=== PATIENT | male | born 1955 | race Caucasian/White ===

== ENCOUNTER 2017-11-10 23:44 | Emergency (ER) | payer OTHER ==
[2017-11-11 01:27] LABS: BASO % 0.6 % (0.0-1.0); EOS # 0.3 10^3/uL (0.0-0.50); EOS % 4.2 % (0.0-3.0); HEMATOCRIT 36.2 % (42.0-52.0); HEMOGLOBIN 12.2 g/dl (13.5-17.5); IMMATURE GRANULOCYTE % 0.3 % (0-3.0); LYMPH # 1.4 10^3/uL (1.5-4.5); LYMPH % 20.3 % (24.0-44.0); MEAN CORPUSCULAR HEMOGLOBIN 30.7 pg (27.0-33.0); MEAN CORPUSCULAR HGB CONC 33.7 g/dl (32.0-36.5); MEAN CORPUSCULAR VOLUME 91.2 fl (80.0-96.0); MONO # 0.7 10^3/uL (0.0-0.8); MONO % 9.4 % (0.0-5.0); NEUTROPHILS # 4.6 10^3/uL (1.8-7.7); NEUTROPHILS % 65.2 % (36.0-66.0); PLATELET COUNT, AUTOMATED 133 10^3/uL (150-450); RED BLOOD COUNT 3.97 10^6/uL (4.30-6.10); WHITE BLOOD COUNT 7.1 10^3/uL (4.0-10.0)
[2017-11-11 01:46] LABS: ANION GAP 6 MEQ/L (8-16); BLOOD UREA NITROGEN 21 MG/DL (7-18); CALCIUM LEVEL 8.1 MG/DL (8.8-10.2); CARBON DIOXIDE LEVEL 30 MEQ/L (21-32); CHLORIDE LEVEL 109 MEQ/L (98-107); CK-MB VALUE MASS < 1.0 NG/ML (<3.6); CPK CREATINE PHOSPHOKINASE 68 U/L (39-308); GLOMERULAR FILTRATION RATE 50.3 (>49); GLUCOSE, FASTING 163 MG/DL (70-100); MB/CK RELATIVE INDEX 1.47 (< OR =4); POTASSIUM SERUM 3.7 MEQ/L (3.5-5.1); SODIUM LEVEL 145 MEQ/L (136-145); TROPONIN I < 0.02 NG/ML (< 0.10)
== END 2017-11-11 03:28 | disposition home or self-care (01) ==
LOC: M ED 23:44
DX: R07.89 Other chest pain (principal); Z88.0 Allergy status to penicillin; Z79.899 Other long term (current) drug therapy; Z79.82 Long term (current) use of aspirin; Z82.49 Family history of ischemic heart disease and other diseases of the circulatory system
CPT/HCPCS: 71046

== ENCOUNTER 2020-06-17 10:26 | Inpatient (IN) | payer MEDICARE, OTHER ==
[~2020-06-17] VITALS: Ht 185.4 cm; Wt 132.9 kg
[~2020-06-17 10:26] MED LIST: AMLO1TAB25 PO; ASPI-527 PO; CAND32TA PO; LIPI10TA PO; METO1TAB32 PO; OMEP40CA97 PO; PLAV1TAB2 PO; RANO500T7 PO; VALT1TAB PO
--- NOTE | 2020-06-17 11:02 | REP ---
INDICATION: CHEST PAIN. COMPARISON: Comparison chest x-ray November 11, 2017. TECHNIQUE: Portable upright AP chest radiograph. FINDINGS: EKG monitoring electrodes are seen. The lungs are symmetrically aerated and free of focal infiltrate. Heart is prominent in size unchanged. Today's views exposed at a lesser level of inspiration. Pleural angles are sharp. No bony abnormality.. IMPRESSION: No acute infiltrate. Relatively low level of inspiration. Mildly prominent heart.. <Electronically signed by Clarke Levine > 06/17/20 [id number]
[2020-06-17 11:07] LABS: BASO % 0.4 % (0.0-1.0); EOS # 0.1 10^3/uL (0.0-0.5); EOS % 1.2 % (0.0-3.0); HEMATOCRIT 41.6 % (42.0-52.0); HEMOGLOBIN 13.8 g/dl (13.5-17.5); LYMPH % 8.5 % (24.0-44.0); MEAN CORPUSCULAR HEMOGLOBIN 30.7 pg (27.0-33.0); MEAN CORPUSCULAR HGB CONC 33.2 g/dl (32.0-36.5); MEAN CORPUSCULAR VOLUME 92.4 fl (80.0-96.0); MONO # 0.8 10^3/uL (0.0-0.8); MONO % 7.2 % (2.0-8.0); NEUTROPHILS # 9.3 10^3/uL (1.5-8.5); NEUTROPHILS % 82.3 % (36.0-66.0); PLATELET COUNT, AUTOMATED 163 10^3/uL (150-450); WHITE BLOOD COUNT 11.3 10^3/uL (4.0-10.0)
[2020-06-17] MEDS ORDERED: AMLO1TAB25 PO (11:23)
[2020-06-17] MEDS ORDERED: HYDR-3910 PO (11:23)
[2020-06-17 12:40] LABS: ALBUMIN 3.8 GM/DL (3.2-5.2); BILIRUBIN,DIRECT 0.2 MG/DL (0.0-0.2); BILIRUBIN,TOTAL 0.7 MG/DL (0.2-1.0); CALCIUM LEVEL 10.1 MG/DL (8.8-10.2); CK-MB VALUE MASS 2.7 NG/ML (<3.6); CREATININE FOR GFR 1.48 MG/DL (0.70-1.30); GLOMERULAR FILTRATION RATE 50.6 (>49); MB/CK RELATIVE INDEX 3.91 (< OR =4); POTASSIUM SERUM 3.8 MEQ/L (3.5-5.1); TOTAL PROTEIN 7.2 GM/DL (6.4-8.2); TROPONIN I 0.14 NG/ML (< 0.10)
[2020-06-17 12:53] LABS: INR 1.11; PROTHROMBIN TIME 14.5 SECONDS (12.5-14.3)
[2020-06-17 13:03] LABS: THYROID STIMULATING HORMONE 2.43 uIU/ML (0.358-3.740)
[2020-06-17] MEDS ORDERED: FUROSEMIDE 100MG/10ML VIAL (J1940) IV ONE (13:10)
[2020-06-17 14:58] LABS: CK-MB VALUE MASS 2.5 NG/ML (<3.6); MB/CK RELATIVE INDEX 3.97 (< OR =4); TROPONIN I 0.15 NG/ML (< 0.10)
[2020-06-17] MEDS ORDERED: MOM 30ML SUSPENSION UDC PO PRN (16:30)
[2020-06-17] MEDS ORDERED: ACETAMINOPHEN TAB 650MG DOSE (2X325MG) PO PRN (16:30)
[2020-06-17] MEDS ORDERED: FUROSEMIDE 40MG/4ML VIAL (J1940) IV SCH (16:30)
[2020-06-17 16:38] LABS: RSV AMPLIFICATION NEGATIVE (NEGATIVE)
--- NOTE | 2020-06-17 17:12 | HPEPDOC ---
General Date of Admission 06/17/2020 Date of Service: Jun 17, 2020 Attending Physician: VANESA FULLER MD Chief Complaint The patient is a 65-year-old male admitted with a reason for visit of Chest Pain. Source: Patient Exam Limitations: No limitations Timing/Duration: Day(s) Severity: Moderate Associated Symptoms: Shortness of breath History of Present Illness 65 yo M with a history of CAD, had an AZ in 2003 s/p PCI with 1 stent, HTN, HLD, chronic angina on ranexa BID, diverticulosis, who presented to the ED reporting worsening SOB of 3 days duration since eating a delicious ham dinner on Tuesday evening. He noticed some worsening SOB, subjective weight gain, dyspnea on exertion, bilateral leg swelling without difficulty laying down, reports of chest pain, palpitations, fever, chills, cough, abdominal pain, diarrhea, nausea, emesis. In the ED he was hypoxemic to mid 80s and placed on 2L NC and was dyspneic and tachypneic. His symptoms improved tremendously after receiving 60 IV lasix x 1. Workup was notable for EKG with NSR without ST changes, troponin that was 0.14 --> 0.15, pro BNP of 2914, covid negative, CXR that was grossly unremarkable, WBC 11.3, hgb 13.8, platelets 163, Na 141, K 3.8, Cr 1. 48, LFTs wnl, TSH 2.43. 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 Castillo at [facility] and his cardiac workup is primarily done at [facility], without prior echo in the [facility] system. He is now being admitted for CHF exacerbation. Home Medications Scheduled Aspirin (Aspirin EC) 325 Mg Tab, 325 MG PO DAILY for pain, (Reported) Atorvastatin Calcium (Lipitor) 10 Mg Tab, 10 MG PO DAILY, (Reported) Candesartan/Hydrochlorothiazid (Candesartan-Hctz 32-12.5 mg Tb) 1 Tab Tab, 1 TAB PO DAILY, (Reported) Ranolazine (Ranexa) 500 Mg Sylvain, 500 MG PO BID, (Reported) Miscellaneous Medications Amlodipine Besylate (Amlodipine Besylate) 10 Mg Tablet, (Reported) Hydralazine HCl (Hydralazine HCl) 25 Mg Tablet, (Reported) Allergies Coded Allergies: Penicillins (Verified Allergy, Unknown, 3/16/21) Past Medical History Medical History CAD, AZ in 2004, s/p PCI with 1 stent HTN HLD History of GIB Diverticulosis chronic angina Surgical History colonscopy in 2016 Family History Significant Family History: Heart disease, Hypertension Social History * Smoker: Denies Alcohol: occationally Drugs: denies Recent Travel/Sick Contacts: Denies: Recent travel, Recent sick contacts Psychosocial History: No pertinent psych hx Lives at home. Non smoker. Occasional alcohol. No illicit drug use. A-FIB/CHADSVASC A-FIB History Current/History of A-Fib/PAF?: No Current PO Anticoag Therapy: No Age/Risk Factor Scoring CHADSVASC: CHADSVASC Response (Comments) Value Age Risk Factor Age 65-74 years old 1 Gender Risk Factor Male 0 Hx of CHF Yes 1 Hx of HTN Yes 1 Hx of Stroke/TIA/or VTE No 0 Hx of Diabetes No 0 Hx of Vascular Disease Yes 1 Total 4 Treatment Treatment ordered: NONE Reason Anticoagulant not given: Not indicated/[id number] Review of Systems Constitutional: Denies: Chills, Fever, Night Sweats Eyes: Denies: Pain, Vision change ENT: Denies: Head Aches, Ear Pain, Dysphagia Skin: Denies: Rash, Lesions, Breakdown Pulmonary: Reports: Dyspnea; Denies: Cough, Pleuritic Chest Pain Cardiovascular: Reports: Edema (bilateral LE edema); Denies: Chest Pain, Palpitations, Orthopnea, Paroxysmal Noc. Dyspnea, Lt Headedness Gastrointestinal: Denies: Nausea, Vomiting, Abdominal Pain, Diarrhea Genitourinary: Denies: Dysuria, Frequency, Incontinence, Retention Hematologic: Denies: Bruising, Bleeding Excessively Endocrine: Denies: Polydipsia, Polyphagia, Polyuria, Heat Intolerance, Cold Intolerance, Other Endocrine Sx Musculoskeletal: Denies: Neck Pain, Back Pain, Joint Pain, Muscle Pain, Spasms Neurological: Denies: Weakness, Numbness, Change in speech, Confusion Psych: Reports: Mood Normal; Denies: Depression, Memory Issues Physical Examination General Exam: Positive: Alert, No Acute Distress Eye Exam: Positive: PERRLA, Conjunctiva & lids normal, EOMI; Negative: Sclera icteric ENT Exam: Positive: Atraumatic, Mucous membr. moist/pink, Pharynx Normal Neck Exam: Positive: Supple, JVD (+ to tragus); Negative: +2 carotid pulse wo bruit, Lymphadenopathy Chest Exam: Positive: Clear to auscultation, Normal air movement; Negative: Rales, Rhonchi, Wheezing Heart Exam: Positive: Rate Normal, Regular Rhythm, Normal S1, Normal S2; Negative: Murmurs, Rubs Telemetry: Positive: No significant arrhythmia Abdomen Exam: Positive: Normal bowel sounds, Soft; Negative: Tenderness, Hepatospenomegaly Extremity Exam: Positive: Edema (2+ to subknees), Normal pulses; Negative: Clubbing, Cyanosis, Tenderness Skin Exam: Positive: Nl turgor and temperature; Negative: Breakdown, Lesion Neuro Exam: Positive: Normal Gait, Normal Speech, Cranial Nerves 3-12 NL, Reflexes 2+ Psych Exam: Positive: Mental status NL, Mood NL, Oriented x 3 Vital Signs Vital Signs Date Time Temp Pulse Resp B/P (MAP) Pulse Ox O2 Delivery O2 Flow Rate FiO2 06/17/20 15:00 79 140/75 (96) 93 Nasal Cannula 2.0 06/17/20 12:56 17 06/17/20 11:12 94 06/17/20 10:41 97.5 Laboratory Data Labs 24H Laboratory Tests 2 06/17/20 10:52: Immature Granulocyte % (Auto) 0.4, Neutrophils (%) (Auto) 82.3H, Lymphocytes (%) (Auto) 8.5L, Monocytes (%) (Auto) 7.2, Eosinophils (%) (Auto) 1.2, Basophils (%) (Auto) 0.4, Neutrophils # (Auto) 9.3H, Lymphocytes # (Auto) 1.0L, Monocytes # (Auto) 0.8, Eosinophils # (Auto) 0.1, Basophils # (Auto) 0.0, Nucleated Red Blood Cells % (auto) 0.0, Prothrombin Time 14.5H, Prothromb Time International Ratio 1.11, Anion Gap 8, Glomerular Filtration Rate 50.6, Calcium Level 10.1, Total Bilirubin 0.7, Direct Bilirubin 0.2, Aspartate Amino Transf (AST/SGOT) 14, Alanine Aminotransferase (ALT/SGPT) 20, Alkaline Phosphatase 110, Total Creatine Kinase 69, Creatine Kinase MB 2.7, Creatine Kinase MB Relative Index 3.91, Troponin I 0.14H, KU-Cji-S-Type Natriuretic Peptide 2914H, Total Protein 7.2, Albumin 3.8, Albumin/Globulin Ratio 1.1, Lipase 50L, Thyroid Stimulating Hormone (TSH) 2.430 06/17/20 14:09: Total Creatine Kinase 63, Creatine Kinase MB 2.5, Creatine Kinase MB Relative Index 3.97, Troponin I 0.15H 06/17/20 15:46: Coronavirus (COVID-19)(PCR) NEGATIVE, Influenza Type A (RT-PCR) NEGATIVE, Influenza Type B (RT-PCR) NEGATIVE, Respiratory Syncytial Virus (PCR) NEGATIVE CBC/BMP Laboratory Tests 06/17/20 10:52 Assessment/Plan 65 yo M with a history of CAD, had an AZ in 2003 s/p PCI with 1 stent, HTN, HLD, chronic angina on ranexa BID, diverticulosis, who presented to the ED reporting worsening SOB of 3 days duration with worsening SOB, subjective weight gain, dyspnea on exertion, bilateral leg swelling and found to be in toñito CHF. CHF exacerbation, unclear subtype: -Although chronic of CHF diagnosis is currently unclear, I imagine it may not be a new diagnosis given cardiac history, though he is not a loop diuretic at recent baseline -continue lasix 60gm IV Q6H -strict I/Os -daily weights -2g sodium diet -hold ARB/HCTZ for HTN -hold CCB -hold hydral for HTN -continue lipitor -continue ASA JUAN: likely congestive i/s/o acute CHF -diuresis as noted above -monitor daily BMP -holding ARB Acute hypoxemia: 2/2 CHF -diuresis as above -procalcitonin -CXR without evidence of pneumonia -covid-19 negative CAD: -continue ranolazine 500 BID, ASA 325 daily, lipitor 20 D Type 2 NSTEMI: i/s/o acute CHF exacerbation -trend troponin -monitor on telemetry -continue home ranolazine -PRN SLN HTN: -while on aggressive loop diuresis, will hold ARB, CCB, HCTZ and hydral and will restart as indicated HLD: -continue lipitor DVT ppx: heparin BID Plan / VTE VTE Prophylaxis Ordered?: Yes VANESA FULLER MD Jun 17, 2020 16:59
[2020-06-17] MEDS ORDERED: MULT-40 PO (17:24)
[2020-06-17] MEDS ORDERED: ATOR1TAB21 PO (17:24)
[2020-06-17 18:00] VITALS: BP 165/93
--- NOTE | 2020-06-17 19:39 | ECGEPIP ---
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
--- NOTE | 2020-06-17 19:53 | ECGEPIP ---
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
[2020-06-17] MEDS: HEPARIN SOD (PORCINE) 5000UNITS/ML 1ML VIAL/SYRINGE SC SCH (20:31)
[2020-06-17] MEDS: RANOLAZINE 500 MG ER TAB PO SCH (20:31)
[2020-06-17 22:00] VITALS: BP 139/76
[2020-06-18] MEDS: FUROSEMIDE 100MG/10ML VIAL (J1940) IV SCH ×3 (00:04→16:30)
[2020-06-18 01:59] LABS: CALCIUM LEVEL 10.1 MG/DL (8.8-10.2); CK-MB VALUE MASS 1.3 NG/ML (<3.6); CREATININE FOR GFR 1.54 MG/DL (0.70-1.30); GLOMERULAR FILTRATION RATE 48.4 (>49); MAGNESIUM LEVEL 2.4 MG/DL (1.8-2.4); MB/CK RELATIVE INDEX 1.83 (< OR =4); PHOSPHORUS LEVEL 3.6 MG/DL (2.5-4.9); POTASSIUM SERUM 3.5 MEQ/L (3.5-5.1); TROPONIN I 0.12 NG/ML (< 0.10)
[2020-06-18 05:59] LABS: HEMATOCRIT 41.1 % (42.0-52.0); HEMOGLOBIN 13.5 g/dl (13.5-17.5); MEAN CORPUSCULAR HEMOGLOBIN 30.5 pg (27.0-33.0); MEAN CORPUSCULAR HGB CONC 32.8 g/dl (32.0-36.5); PLATELET COUNT, AUTOMATED 156 10^3/uL (150-450); RED BLOOD COUNT 4.42 10^6/uL (4.30-6.10); WHITE BLOOD COUNT 10.4 10^3/uL (4.0-10.0)
[2020-06-18 06:00] VITALS: BP 135/76
[2020-06-18 06:20] LABS: CALCIUM LEVEL 9.3 MG/DL (8.8-10.2); CREATININE FOR GFR 1.37 MG/DL (0.70-1.30); GLOMERULAR FILTRATION RATE 55.3 (>49); MAGNESIUM LEVEL 2.3 MG/DL (1.8-2.4); POTASSIUM SERUM 3.5 MEQ/L (3.5-5.1)
--- NOTE | 2020-06-18 08:59 | IPNPDOC ---
Text Note Date of Service The patient was seen on 06/18/20. NOTE Physical Examination General Exam: Positive: Alert, No Acute Distress Eye Exam: Positive: PERRLA, Conjunctiva & lids normal, EOMI; Negative: Sclera icteric ENT Exam: Positive: Atraumatic, Mucous membr. moist/pink, Pharynx Normal Neck Exam: Positive: Supple, JVD (+ to tragus); Negative: +2 carotid pulse wo bruit, Lymphadenopathy Chest Exam: Positive: Clear to auscultation, Normal air movement; Negative: Rales, Rhonchi, Wheezing Heart Exam: Positive: Rate Normal, Regular Rhythm, Normal S1, Normal S2; Negative: Murmurs, Rubs Telemetry: Positive: No significant arrhythmia SUBJECTIVE: -No acute events overnight -Feels well this morning -However was noted to be hypoxemic overnight requiring up to 5L while sleeping, on 3L this morning OBJECTIVE: General: Morbidly obese, NAD, nasal canula in place HEENT: NCAT, EOMI, PERRLA, MMM Neck: no noted JVD anymore Pulm: CTAB, no wheezing, rales or rhonchi Cardiac: RRR, no m/r/g Abd: Protuberant, normal bowel sounds, soft, NTND Extremities: Edema is dramatically improved, no significant bilateral edema, trace at most now, WWP. Skin: Nummular psoriatic patch on his central back and elbows, no other noted rashes or areas of erythema or lesions Neuro: Normal Speech, Cranial Nerves 3-12 NL, moving all extremities spontaneously Psych: Mental status NL, Mood NL, Oriented x 3 Laboratory Data: WBC 10.4 Hgb 13.5 platelets 156 na 143 K 3.5 BUN 21 Cr 1.37 Assessment: 65 yo M with a history of CAD, had an [place] in 2003 s/p PCI with 1 stent, HTN, HLD, chronic angina on ranexa BID, diverticulosis, who presented to the ED reporting worsening SOB of 3 days duration with worsening SOB, subjective weight gain, dyspnea on exertion, bilateral leg swelling and found to be in toñito CHF. CHF exacerbation, unclear subtype: -Although chronicity of CHF diagnosis is currently unclear, I imagine it may not be a new diagnosis given cardiac history, though he is not a loop diuretic at recent baseline -Switch IV lasix to 60mg PO daily -strict I/Os -daily weights -2g sodium diet -2L/24h fluid restriction -hold ARB/HCTZ -hold CCB -hold hydral for HTN -continue lipitor -continue ASA CKD: stable, at baseline -diuresis as noted above -monitor daily BMP -holding ARB currently Acute hypoxemia: 2/2 CHF but also likely has undiagnosed LAUREANO given nocturnal worsening of hypoxemia -diuresis as above -procalcitonin was wnl -CXR without evidence of pneumonia -covid-19 negative -supplemental O2 to goal >92% -incentive spirometry -will need pulm referral at discharge for sleep study CAD: -continue ranolazine 500 BID, ASA 325 daily, lipitor 20 QD Type 2 NSTEMI: i/s/o acute CHF exacerbation -troponin downtrended -monitor on telemetry -continue home ranolazine HTN: -while on aggressive loop diuresis, will hold ARB, CCB, HCTZ and hydral and will restart as indicated HLD: -continue lipitor DVT ppx: heparin BID VS,Fishbone, I+O VS, Fishbone, I+O Laboratory Tests 06/17/20 10:52 06/18/20 01:21 06/18/20 05:39 Vital Signs Date Time Temp Pulse Resp B/P (MAP) Pulse Ox O2 Delivery O2 Flow Rate FiO2 06/18/20 06:00 98.4 92 18 135/76 (95) 94 Nasal Cannula 5.0 06/17/20 11:12 94 I&O- Last 24 Hours up to 6 AM 06/18/20 06:00 Intake Total 510 ml Output Total 2225 ml Balance -1715 ml VANESA FULLER MD Jun 18, 2020 08:59
[2020-06-18] MEDS: ASPIRIN 325 MG TAB PO SCH (09:44)
[2020-06-18] MEDS: RANOLAZINE 500 MG ER TAB PO SCH ×2 (09:44→20:53)
[2020-06-18] MEDS: ATORVASTATIN 20 MG TAB PO SCH (09:44)
[2020-06-18] MEDS: HEPARIN SOD (PORCINE) 5000UNITS/ML 1ML VIAL/SYRINGE SC SCH ×2 (09:45→20:54)
[2020-06-18 14:00] VITALS: BP 130/81
--- NOTE | 2020-06-18 17:51 | REPVR ---
PROCEDURE INFORMATION: Exam: CT Chest Without Contrast; Diagnostic Exam date and time: 06/18/2020 5:27 PM Age: 65 years old Clinical indication: Other: Hypoxiemia TECHNIQUE: Imaging protocol: Diagnostic computed tomography of the chest without contrast. 3D rendering (Not supervised by radiologist): MIP and/or 3D reconstructed images were created by the technologist. Radiation optimization: All CT scans at this facility use at least one of these dose optimization techniques: automated exposure control; mA and/or kV adjustment per patient size (includes targeted exams where dose is matched to clinical indication); or iterative reconstruction. COMPARISON: [facility] PORTABLE CHEST X-RAY 06/17/2020 10:51 AM FINDINGS: Lungs: Scattered areas of infiltrate having somewhat of a ground-glass appearance are noted within the lungs. This is slightly more patchy and consolidative involving the superior segment of the left lower lobe. Pleural spaces: Unremarkable. No pneumothorax. No pleural effusion. Heart: Unremarkable. No cardiomegaly. No pericardial effusion. Mediastinal space: There is a small hiatal hernia. Aorta: Unremarkable. No aortic aneurysm. Lymph nodes: Unremarkable. No enlarged lymph nodes. Kidneys and ureters: There is a mass noted involving the right kidney measuring at least 87 x 97 mm incompletely visualized. This is indeterminate and could be a complicated hemorrhagic cyst. Consider contrast enhanced nonemergent CT scan for further evaluation if clinically indicated. Bones/joints: Unremarkable. No acute fracture. Soft tissues: Unremarkable. IMPRESSION: 1. Subtle areas of ground-glass haziness noted involving both lungs with an area of more consolidation noted involving the superior segment of the left lower lobe. 2. Imaging features can be seen with COVID-19 pneumonia, though are nonspecific and can occur with a variety of infectious and noninfectious processes. (Reference: Mo) 3. Large lesion noted incompletely seen involving the right kidney without fluid density. Questionable hemorrhagic cyst versus mass. COMMENTS: Consistent with the [employer]'s Incidental Findings Committee white paper (J Am Teena Radiol 2018): Any incidental renal lesion less than 1 cm or classified as too small to characterize, or any incidental cystic renal lesion characterized as simple-appearing, is likely benign. No follow-up imaging is recommended for these lesions per consensus recommendations based on imaging criteria. REFERENCES: Mo Juan et al., Radiological Society of [place] Expert Consensus Statement on Reporting Chest CT Findings Related to COVID-19. Endorsed by the Society of Thoracic Radiology, the [employer], and RSNA. Published June 27, 2019. Electronically signed by: Mark Peterson On 06/18/2020 17:50:59 PM
[2020-06-18 22:00] VITALS: BP 131/83
[2020-06-18] MEDS ORDERED: ISOVUE-370 76% 100ML VIAL As Ordered ONE (22:25)
--- NOTE | 2020-06-18 23:28 | REPVR ---
PROCEDURE INFORMATION: Exam: CT Angiography Chest With Contrast Exam date and time: 06/18/2020 10:53 PM Age: 65 years old Clinical indication: Abnormal findings; Other: Elevated d dimer; Additional info: R/O pe with hypoxemia and hiigh ddimer TECHNIQUE: Imaging protocol: Computed tomographic angiography of the chest with contrast. 3D rendering (Not supervised by radiologist): MIP and/or 3D reconstructed images were created by the technologist. Radiation optimization: All CT scans at this facility use at least one of these dose optimization techniques: automated exposure control; mA and/or kV adjustment per patient size (includes targeted exams where dose is matched to clinical indication); or iterative reconstruction. Contrast material: ISOVUE 370; Contrast volume: 75 ml; Contrast route: INTRAVENOUS (IV); COMPARISON: CT Chest without contrast 06/18/2020 5:23 PM FINDINGS: Pulmonary arteries: The main pulmonary artery measures 36 mm. Moderate bilateral pulmonary embolism involving all lobes and greatest in the right lower lobe. Aorta: The ascending thoracic aorta measures 34 mm. Lungs: Mild scattered ground-glass infiltrates, greatest in the left lower lobe with minimal scattered fibro-atelectatic change. Pleural spaces: Unremarkable. No pneumothorax. No pleural effusion. Heart: RV diameter is 6.2 cm, LV diameter is 3.6 cm. RV/LV ratio is 1.7. Lymph nodes: There are some upper normal celiac nodes anterior to the IVC. Kidneys and ureters: Incomplete visualization of a solid heterogeneously enhancing mass of the anterior right kidney measuring approximately the 11.4 x 9.2 cm in diameter consistent with a renal malignancy. There is incomplete visualization of a anterior left renal cyst measuring 2.0 cm with a Hounsfield measurement of 1. Bones/joints: Unremarkable. No acute fracture. Soft tissues: Unremarkable. IMPRESSION: 1. Moderate bilateral pulmonary embolism involving all lobes. 2. Mild scattered ground-glass infiltrates, greatest in the left lower lobe with minimal scattered fibro-atelectatic change which appears slightly increased overall since 06/18/2020. 3. Elevated RV/LV ratio of 1.7. 4. Incomplete visualization of an enhancing right renal mass consistent with malignancy measuring at least 11.4 x 9.2 cm in diameter. Suggest urologic consult. COMMENTS: Consistent with the [employer]'s Incidental Findings Committee white paper (J Am Teena Radiol 2018): Any incidental renal lesion less than 1 cm or classified as too small to characterize, or any incidental cystic renal lesion characterized as simple-appearing, is likely benign. No follow-up imaging is recommended for these lesions per consensus recommendations based on imaging criteria. Electronically signed by: Eamon Goodman On 06/18/2020 23:28:40 PM
[2020-06-18] MEDS ORDERED: HEPARIN DRIP 25,000 UNITS in IV 1 EA IV SCH (23:39)
[2020-06-18] MEDS ORDERED: HEPARIN SOD (PORCINE) 5000UNITS/ML 1ML VIAL/SYRINGE IV PRN (23:40)
[2020-06-18] MEDS ORDERED: HEPARIN SOD (PORCINE) 5000UNITS/ML 1ML VIAL/SYRINGE IV ONE (23:40)
[2020-06-19 06:00] VITALS: BP_SYST 128; BP_SYST 147; BP_DIAS 79; BP_DIAS 89
[2020-06-19 06:05] LABS: HEMATOCRIT 40.6 % (42.0-52.0); MEAN CORPUSCULAR HEMOGLOBIN 29.8 pg (27.0-33.0); MEAN CORPUSCULAR VOLUME 93.1 fl (80.0-96.0); PLATELET COUNT, AUTOMATED 154 10^3/uL (150-450); RED BLOOD COUNT 4.36 10^6/uL (4.30-6.10); WHITE BLOOD COUNT 9.6 10^3/uL (4.0-10.0)
[2020-06-19 07:14] LABS: PARTIAL THROMBOPLASTIN TIME 104.6 SECONDS (24.2-38.5)
[2020-06-19 07:23] LABS: C REACTIVE PROTEIN QUANTITATIV 6.03 MG/DL (0.00-0.30); CALCIUM LEVEL 9.1 MG/DL (8.8-10.2); CREATININE FOR GFR 1.4 MG/DL (0.70-1.30); MAGNESIUM LEVEL 2.5 MG/DL (1.8-2.4); POTASSIUM SERUM 3.6 MEQ/L (3.5-5.1)
[2020-06-19] MEDS: ATORVASTATIN 20 MG TAB PO SCH (08:35)
[2020-06-19] MEDS: ASPIRIN 325 MG TAB PO SCH (08:35)
[2020-06-19] MEDS: RANOLAZINE 500 MG ER TAB PO SCH ×2 (08:35→20:16)
--- NOTE | 2020-06-19 09:36 | IPNPDOC ---
Text Note Date of Service The patient was seen on 06/19/20. NOTE Synopsis: 65 yo morbidly obese M with significant CAD and chronic angina, who reports a prior history of chewing tobacco but no smoking history or diagnosis of COPD or asthma who presented with a few days of dyspnea with exertion without fever, chills, cough or any URI symptoms but noted bilateral LE edema. In the ED he was notably volume overloaded and required 2-3L NC. His dyspnea improved after diuretics with resolution of edema and JVD but hypoxemia persisted and actually got worse. noncon chest CT showed multifocal GGOs and respiratory panel was negative for covid-19 while procalcitonin was negative making bacterial PNA unlikely. A d-dimer was checked and >4000 after which a CTA chest was done that showed a moderate bilateral pulmonary embolism involving all lobes, mild scattered GGOs, elevated RV/LV ratio of 1.7 and incidental incomplete visualization of an enhancing right renal mass consistent with malignancy measuring at least 11.4 x 9.2 cm in diameter. He was therefore started on a heparin gtt overnight. Subjective: -No acute events overnight, remains on 3L this morning -No chest pain, palpitations, orthopnea or hematuria. OBJECTIVE: General: Morbidly obese, NAD, nasal canula in place HEENT: NCAT, EOMI, PERRLA, MMM Neck: no noted JVD anymore Pulm: CTAB, no wheezing, rales or rhonchi Cardiac: RRR, no m/r/g Abd: Protuberant, normal bowel sounds, soft, NTND Extremities: No LE edema, WWP. Skin: Nummular psoriatic patch on his central back and elbows, no other noted rashes or areas of erythema or lesions Neuro: Normal Speech, Cranial Nerves 3-12 NL, moving all extremities spontaneously Psych: Mental status NL, Mood NL, Oriented x 3 Laboratory Data: WBC 9.6 Hgb 13 platelets 154 na 141 K 3.6 Cr 1.4 CTA chest: FINDINGS: Pulmonary arteries: The main pulmonary artery measures 36 mm. Moderate bilateral pulmonary embolism involving all lobes and greatest in the right lower lobe. Aorta: The ascending thoracic aorta measures 34 mm. Lungs: Mild scattered ground-glass infiltrates, greatest in the left lower lobe with minimal scattered fibro-atelectatic change. Pleural spaces: Unremarkable. No pneumothorax. No pleural effusion. Heart: RV diameter is 6.2 cm, LV diameter is 3.6 cm. RV/LV ratio is 1.7. Lymph nodes: There are some upper normal celiac nodes anterior to the IVC. Kidneys and ureters: Incomplete visualization of a solid heterogeneously enhancing mass of the anterior right kidney measuring approximately the 11.4 x 9.2 cm in diameter consistent with a renal malignancy. There is incomplete visualization of a anterior left renal cyst measuring 2.0 cm with a Hounsfield measurement of 1. Bones/joints: Unremarkable. No acute fracture. Soft tissues: Unremarkable. IMPRESSION: 1. Moderate bilateral pulmonary embolism involving all lobes. 2. Mild scattered ground-glass infiltrates, greatest in the left lower lobe with minimal scattered fibro-atelectatic change which appears slightly increased overall since 06/18/2020. 3. Elevated RV/LV ratio of 1.7. 4. Incomplete visualization of an enhancing right renal mass consistent with malignancy measuring at least 11.4 x 9.2 cm in diameter. Suggest urologic consult. noncon CT chest: Lungs: Scattered areas of infiltrate having somewhat of a ground-glass appearance are noted within the lungs. This is slightly more patchy and consolidative involving the superior segment of the left lower lobe. Pleural spaces: Unremarkable. No pneumothorax. No pleural effusion. Heart: Unremarkable. No cardiomegaly. No pericardial effusion. Mediastinal space: There is a small hiatal hernia. Aorta: Unremarkable. No aortic aneurysm. Lymph nodes: Unremarkable. No enlarged lymph nodes. Kidneys and ureters: There is a mass noted involving the right kidney measuring at least 87 x 97 mm incompletely visualized. This is indeterminate and could be a complicated hemorrhagic cyst. Consider contrast enhanced nonemergent CT scan for further evaluation if clinically indicated. Bones/joints: Unremarkable. No acute fracture. Soft tissues: Unremarkable. IMPRESSION: 1. Subtle areas of ground-glass haziness noted involving both lungs with an area of more consolidation noted involving the superior segment of the left lower lobe. 2. Imaging features can be seen with COVID-19 pneumonia, though are nonspecific and can occur with a variety of infectious and noninfectious processes. (Reference: Hassan) 3. Large lesion noted incompletely seen involving the right kidney without fluid density. Questionable hemorrhagic cyst versus mass. Admission CXR: EKG monitoring electrodes are seen. The lungs are symmetrically aerated and free of focal infiltrate. Heart is prominent in size unchanged. Today's views exposed at a lesser level of inspiration. Pleural angles are sharp. No bony abnormality.. IMPRESSION: No acute infiltrate. Relatively low level of inspiration. Mildly prominent heart.. TTE: official read pending --> per my discussion with Dr. Vaughn, he has RV strain, dilated IVC, significant pulm pressures showing that he may have been having thromboses for longer than a few days, grade 1 diastolic dysfunction with an otherwise normal EF. Assessment: 65 yo morbidly obese M with significant CAD and chronic angina, who reports a prior history of chewing tobacco but no smoking history or diagnosis of COPD or asthma who presented with a few days of dyspnea with exertion without fever, chills, cough or any URI symptoms but noted bilateral LE edema. In the ED he was notably volume overloaded and required 2-3L NC. His dyspnea improved after diuretics with resolution of edema and JVD but hypoxemia persisted and actually got worse. noncon chest CT showed multifocal GGOs and respiratory panel was negative for covid-19 while procalcitonin was negative making bacterial PNA unlikely. A d-dimer was checked and >4000 after which a CTA chest was done that showed a moderate bilateral pulmonary embolism involving all lobes, mild scatter ed GGOs, elevated RV/LV ratio of 1.7 and incidental incomplete visualization of an enhancing right renal mass consistent with malignancy measuring at least 11.4 x 9.2 cm in diameter. He was therefore started on a heparin gtt overnight. Acute bilateral PEs: likely 2/2 malignancy given incidentally found R renal mass -CTA chest was done that showed a moderate bilateral pulmonary embolism involving all lobes, mild scattered GGOs, elevated RV/LV ratio of 1.7 and incidental incomplete visualization of an enhancing right renal mass consistent with malignancy measuring at least 11.4 x 9.2 cm in diameter -continue heparin gtt -Although he has RV strain, is hemodynamically stable, no vascular surgery coverage available -will discuss anticoagulation plan with hematology given RV strain, submassive PEs and will also FYI about renal mass that is likely malignancy and will need to be established with onc and urology. Acute HFpEF: -Although chronicity of CHF diagnosis is currently unclear, I imagine it may not be a new diagnosis given cardiac history, though he is not a loop diuretic at recent baseline -s/p IV lasix -TTE official read pending --> per my discussion with Dr. Vaughn, he has RV strain, dilated IVC, significant pulm pressures showing that he may have been having thromboses for longer than a few days, grade 1 diastolic dysfunction with an otherwise normal EF. -strict I/Os -daily weights -2g sodium diet -2L/24h fluid restriction -hold ARB/HCTZ -hold CCB -hold hydral for HTN -continue lipitor -continue ASA R renal mass: -incidentally found on CTA chest --> MRI abdomen is ordered. Otherwise will get CT A/P w/wo IV contrast if MRI cannot be completed due to heart stent -urology consult--> spoke with Dr. Mcgarry who recommended following up with him as an outpatient. -daily BMP, Cr is at his recent baseline CKD: stable, at baseline -s/p loop diuresis -monitor daily BMP -holding ARB currently, BP well controlled Acute hypoxemic respiratory failure: 2/2 bilateral PEs and acute HFpEF but also likely has undiagnosed LAUREANO given morbid obesity -s/p diuresis -procalcitonin was wnl -CT showed GGOs, procalcitonin was negative making likelihood for bacterial PNA unlikely -covid-19 negative -supplemental O2 to goal >92% -incentive spirometry -heparin gtt for acute PEs -will need pulm referral at discharge for sleep study CAD: -continue ranolazine 500 BID, ASA 325 daily, lipitor 20 QD Type 2 NSTEMI: i/s/o acute bilateral PEs with RV strain and acute HFpEF -troponin downtrended -monitor on telemetry -continue home ranolazine -no chest pain at present HTN: normotensive -hold ARB, CCB, HCTZ and hydral and will restart as indicated HLD: -continue lipitor DVT ppx: heparin gtt VS,Fishbone, I+O VS, Fishbone, I+O Laboratory Tests 06/19/20 05:43 Vital Signs Date Time Temp Pulse Resp B/P (MAP) Pulse Ox O2 Delivery O2 Flow Rate FiO2 06/19/20 06:00 98.8 80 18 128/79 (95) 96 Nasal Cannula 4.0 06/17/20 11:12 94 I&O- Last 24 Hours up to 6 AM 06/19/20 06:00 Intake Total 1883 ml Output Total 1125 ml Balance 758 ml VANESA FULLER MD Jun 19, 2020 09:36
[2020-06-19 14:00] VITALS: BP 113/66
[2020-06-19 15:54] LABS: CREATININE FOR GFR 1.33 MG/DL (0.70-1.30); GLOMERULAR FILTRATION RATE 57.3 (>49)
[2020-06-19] MEDS: ENOXAPARIN 150MG/ML SYRINGE (J1650 PER 10MG) SC SCH (18:13)
[2020-06-19 22:00] VITALS: BP 120/66
[2020-06-20] MEDS: ENOXAPARIN 150MG/ML SYRINGE (J1650 PER 10MG) SC SCH (05:41)
[2020-06-20 06:07] LABS: HEMOGLOBIN 13.1 g/dl (13.5-17.5); MEAN CORPUSCULAR HEMOGLOBIN 30.1 pg (27.0-33.0); MEAN CORPUSCULAR VOLUME 94.3 fl (80.0-96.0); PLATELET COUNT, AUTOMATED 161 10^3/uL (150-450); RED BLOOD COUNT 4.35 10^6/uL (4.30-6.10); WHITE BLOOD COUNT 8.2 10^3/uL (4.0-10.0)
[2020-06-20 06:35] LABS: CREATININE FOR GFR 1.36 MG/DL (0.70-1.30); GLOMERULAR FILTRATION RATE 55.8 (>49); MAGNESIUM LEVEL 2.6 MG/DL (1.8-2.4); POTASSIUM SERUM 3.7 MEQ/L (3.5-5.1)
[2020-06-20] MEDS: ASPIRIN 325 MG TAB PO SCH (09:24)
[2020-06-20] MEDS: ATORVASTATIN 20 MG TAB PO SCH (09:24)
[2020-06-20] MEDS: RANOLAZINE 500 MG ER TAB PO SCH (09:24)
[2020-06-20] MEDS ORDERED: LOVE0.8I3 SC (09:59)
[2020-06-20] MEDS ORDERED: PROHANCE 279.3MG/ML 15ML VIAL As Ordered ONE (12:13)
--- NOTE | 2020-06-20 13:09 | DS.PDOC ---
Discharge Summary General Date of Admission Jun 17, 2020 at 16:30 Date of Discharge 06/20/2020 Attending Physician: VANESA UFLLER MD Discharge Summary PROCEDURES PERFORMED DURING STAY: None ADMITTING DIAGNOSES: Acute CHF Acute hypoxemic respiratory failure CKD Morbid obesity HTN HLD CAD Chronic angina DISCHARGE DIAGNOSES: Acute HFpEF Acute bilateral submassive PEs Acute hypoxemic respiratory failure Newly found L renal mass c/f malignancy CKD Morbid obesity HTN HLD CAD Chronic angina COMPLICATIONS/CHIEF COMPLAINT: CHF. HISTORY OF PRESENT ILLNESS: 65 yo M with a history of CAD, had an ID in 2003 s/p PCI with 1 stent, HTN, HLD, chronic angina on ranexa BID, diverticulosis, who presented to the ED reporting worsening SOB of 3 days duration since eating a delicious ham dinner on Tuesday evening. He noticed some worsening SOB, subjective weight gain, dyspnea on e xertion, bilateral leg swelling without difficulty laying down, reports of chest pain, palpitations, fever, chills, cough, abdominal pain, diarrhea, nausea, emesis. HOSPITAL COURSE In the ED he was hypoxemic to mid 80s and placed on 2L NC and was dyspneic and tachypneic. His symptoms improved tremendously after receiving 60 IV lasix x 1. Workup was notable for EKG with NSR without ST changes, troponin that was 0.14 --> 0.15, pro BNP of 2914, covid negative, CXR that was grossly unremarkable, WB C 11.3, hgb 13.8, platelets 163, Na 141, K 3.8, Cr 1. 48, LFTs wnl, TSH 2.43. His chalk tester is Dr. Castillo at [place] and his cardiac workup is primarily done at [place], without prior echo in the [facility] system. In the ED he was notably volume overloaded and required 2-3L NC. His dyspnea improved after diuretics with resolution of edema and JVD but hypoxemia persisted and actually got worse. Noncon chest CT showed multifocal GGOs and respiratory panel was negative for covid-19 while procalcitonin was negative making bacterial PNA unlikely. A d- dimer was checked and was >4000 after which a CTA chest was done that showed a moderate bilateral pulmonary embolism involving all lobes, mild scattered GGOs, elevated RV/LV ratio of 1.7 and incidental incomplete visualization of an enhancing right renal mass consistent with malignancy measuring at least 11.4 x 9.2 cm in diameter. He was therefore started on a heparin gtt overnight and eventually transitioned to BID lovenox for submassive PEs. Dr. Mcgarry (urology) was called and recommended outpatient follow up with him shortly after discharge for planning and to obtain definitive abdominal imaging with CT A?P w/wo IV contrast. Given recent contrast and history of CKD and MRI being appropriate, I ordered an MRI of his abdomen that was done prior to discharge for Dr. Mcgarry's evaluation when he sees him in the outpatient setting shortly . He is now being discharged on lovenox, also on supplemental oxygen as he continued to be hypoxemic from the recent PEs with the expectation that will require supplemental oxygen for at least the next week up to I predict at most 1 month. DISCHARGE MEDICATIONS: Please see below. ALLERGIES: Please see below. PHYSICAL EXAMINATION ON DISCHARGE: OBJECTIVE: General: Morbidly obese, NAD, nasal canula in place HEENT: NCAT, EOMI, PERRLA, MMM Neck: no noted JVD anymore Pulm: CTAB, no wheezing, rales or rhonchi Cardiac: RRR, no m/r/g Abd: Protuberant, normal bowel sounds, soft, NTND Extremities: No LE edema, WWP. Skin: Nummular psoriatic patch on his central back and elbows, no other noted rashes or areas of erythema or lesions Neuro: Normal Speech, Cranial Nerves 3-12 NL, moving all extremities spontaneously Psych: Mental status NL, Mood NL, Oriented x 3 Laboratory Data: see below Imaging: CTA chest: FINDINGS: Pulmonary arteries: The main pulmonary artery measures 36 mm. Moderate bilateral pulmonary embolism involving all lobes and greatest in the right lower lobe. Aorta: The ascending thoracic aorta measures 34 mm. Lungs: Mild scattered ground-glass infiltrates, greatest in the left lower lobe with minimal scattered fibro-atelectatic change. Pleural spaces: Unremarkable. No pneumothorax. No pleural effusion. Heart: RV diameter is 6.2 cm, LV diameter is 3.6 cm. RV/LV ratio is 1.7. Lymph nodes: There are some upper normal celiac nodes anterior to the IVC. Kidneys and ureters: Incomplete visualization of a solid heterogeneously enhancing mass of the anterior right kidney measuring approximately the 11.4 x 9.2 cm in diameter consistent with a renal malignancy. There is incomplete visualization of a anterior left renal cyst measuring 2.0 cm with a Hounsfield measurement of 1. Bones/joints: Unremarkable. No acute fracture. Soft tissues: Unremarkable. IMPRESSION: 1. Moderate bilateral pulmonary embolism involving all lobes. 2. Mild scattered ground-glass infiltrates, greatest in the left lower lobe with minimal scattered fibro-atelectatic change which appears slightly increased overall since 06/18/2020. 3. Elevated RV/LV ratio of 1.7. 4. Incomplete visualization of an enhancing right renal mass consistent with malignancy measuring at least 11.4 x 9.2 cm in diameter. Suggest urologic consult. Noncon CT chest: Lungs: Scattered areas of infiltrate having somewhat of a ground-glass appearance are noted within the lungs. This is slightly more patchy and consolidative involving the superior segment of the left lower lobe. Pleural spaces: Unremarkable. No pneumothorax. No pleural effusion. Heart: Unremarkable. No cardiomegaly. No pericardial effusion. Mediastinal space: There is a small hiatal hernia. Aorta: Unremarkable. No aortic aneurysm. Lymph nodes: Unremarkable. No enlarged lymph nodes. Kidneys and ureters: There is a mass noted involving the right kidney measuring at least 87 x 97 mm incompletely visualized. This is indeterminate and could be a complicated hemorrhagic cyst. Consider contrast enhanced nonemergent CT scan for further evaluation if clinically indicated. Bones/joints: Unremarkable. No acute fracture. Soft tissues: Unremarkable. IMPRESSION: 1. Subtle areas of ground-glass haziness noted involving both lungs with an area of more consolidation noted involving the superior segment of the left lower lobe. 2. Imaging features can be seen with COVID-19 pneumonia, though are nonspecific and can occur with a variety of infectious and noninfectious processes. (Reference: Hassan) 3. Large lesion noted incompletely seen involving the right kidney without fluid density. Questionable hemorrhagic cyst versus mass. Admission CXR: EKG monitoring electrodes are seen. The lungs are symmetrically aerated and free of focal infiltrate. Heart is prominent in size unchanged. Today's views exposed at a lesser level of inspiration. Pleural angles are sharp. No bony abnormality.. IMPRESSION: No acute infiltrate. Relatively low level of inspiration. Mildly prominent heart.. TTE: official read pending --> per my discussion with Dr. Vaughn, he has RV strain, dilated IVC, significant pulm pressures showing that he may have been having thromboses for longer than a few days, grade 1 diastolic dysfunction with an otherwise normal EF. MRI of abdomen --> pending read at discharge PROGNOSIS: Good ACTIVITY: As tolerated. DIET: 2g sodium DISCHARGE PLAN: Home with lovenox BID and close PCP and urology follow up. DISPOSITION: Home DISCHARGE INSTRUCTIONS: Home with lovenox BID and close PCP and urology follow up. Requiring 2L NC ITEMS TO FOLLOWUP ON ON OUTPATIENT: Acute bilateral PEs - expect anticoagulation for life. May transition to NoAC after resolution of submassive PEs with RV strain L renal mass - pending urology evaluation HFpEF - follow up with Dr. Castillo DISCHARGE CONDITION: Stable TIME SPENT ON DISCHARGE: 56 minutes. Vital Signs/I&Os Vital Signs Date Time Temp Pulse Resp B/P (MAP) Pulse Ox O2 Delivery O2 Flow Rate FiO2 06/20/20 06:00 98.8 76 18 93 Nasal Cannula 3.0 06/19/20 22:00 120/66 (84) 06/17/20 11:12 94 I&O- Last 24 Hours up to 6 AM 06/20/20 05:59 Intake Total 1488 ml Output Total 500 ml Balance 988 ml Laboratory Data Labs 24H Laboratory Tests 2 06/19/20 13:09: Activated Partial Thromboplast Time 53.1H 06/19/20 15:06: Glomerular Filtration Rate 57.3 06/20/20 05:46: Glomerular Filtration Rate 55.8, Nucleated Red Blood Cells % (auto) 0.0, Anion Gap 5L, Calcium Level 9.0, Magnesium Level 2.6H CBC/BMP Laboratory Tests 06/19/20 15:06 06/20/20 05:46 Discharge Medications Scheduled Amlodipine Besylate (Amlodipine Besylate) 10 Mg Tablet, 10 MG PO QHS, (Reported) Aspirin (Aspirin EC) 325 Mg Tab, 325 MG PO DAILY, (Reported) Atorvastatin Calcium (Atorvastatin Calcium) 20 Mg Tablet, 20 MG PO QHS, (Reported) Enoxaparin Sodium (Lovenox) 150 Mg/1 Ml Syringe, 130 MG SC Q12H Hydralazine HCl (Hydralazine HCl) 25 Mg Tablet, 25 MG PO QHS, (Reported) Multivitamin (Multivitamins) 1 Each Tablet, 1 TAB PO BID, (Reported) Ranolazine (Ranexa) 500 Mg Sylvain, 500 MG PO BID, (Reported) Allergies Coded Allergies: Penicillins (Verified Allergy, Unknown, 06/17/20) VANESA FULLER MD Jun 20, 2020 10:19
--- NOTE | 2020-06-20 13:22 | REP ---
INDICATION: follow up on renal mass. COMPARISON: Comparison is made with images from chest CT study dated June 18, 2020. A large right renal mass was observed partially at the bottom of the imaging field of view of this CT study.. TECHNIQUE: Axial and coronal T1 and T2 weighted sequences include spin echo, fast spin echo, in and out of phase, the and dynamically acquired sequential postcontrast images. Gadolinium enhancement dose is 13 mL of intravenous ProHance. FINDINGS: There is a tiny cyst in the left lobe of the liver. No other focal liver lesion is seen. The spleen is unremarkable. Normal adrenal glands are seen bilaterally. There is no evidence of ascites or pleural effusion. In the left kidney, there are several simple cortical cysts. The largest of these is anteriorly position in the upper pole and measuring 2.0 cm in greatest diameter. No hydronephrosis or mass lesion is observed in the left kidney. On the right however MR imaging confirms the presence of a large heterogeneous centrally necrotic appearing mass arising from the lower pole of the right kidney. This lesion measures 10.5 by 14.5 x 12.8 cm in overall dimension. Postcontrast imaging demonstrates hypervascular peripheral enhancement with some irregular central areas suggesting necrosis within the lesion. There is no evidence of renal vein thrombosis. No Octavia caval or para aortic adenopathy is seen. There is a portal caval lymph node above the level of the lesion in the kidney which measures 12 mm in short axis dimension. there is a peripancreatic lymph node which measures 11 mm in short axis dimension. These 2 lymph nodes are of uncertain significance. No other significant abnormality. IMPRESSION: MRI study confirms the presence of a heterogeneously enhancing necrotic appearing 14.5 cm mass arising from the lower pole the right kidney. Considerations include renal cell carcinoma, oncocytoma. There is a peripancreatic and a portal caval lymph node above the level of the mass in the kidney which are of uncertain significance. <Electronically signed by Clarke Levine > 06/20/20 [id number]
[2020-06-20 14:00] VITALS: BP 115/83
--- NOTE | 2020-06-20 14:28 | ECHO ---
DATE OF PROCEDURE: 06/18/2020 Age: 65 Gender: Male REFERRING PHYSICIAN: Deisi Kearns M.D. PATIENT LOCATION: Room 4213. REASON FOR STUDY: Congestive heart failure (CHF). MEASUREMENTS: IVS 1.8 cm LVPW 1.7 cm LV 4.3 LA 3.6 cm Aorta 3.3 cm IVC 2.4 cm DOPPLER MEASUREMENT Peak velocity across the aortic valve 1.7 m/s Peak velocity across the LVOT 1.1 m/s Peak gradient across the aortic valve 11 mmHg Mean gradient across the aortic valve 5 mmHg Mitral E 0.73 Mitral A 0.98 with a ratio of 0.7 Maximum tricuspid valve velocity 3.5 m/s 2D COMMENTS: 1. Normal left ventricular size with moderately increased left ventricular wall thickness. Left ventricular systolic function is normal, estimated at 55% to 65%. 2. Normal left atrium. The right atrium and the right ventricle appear to be enlarged. There was a D-shaped appearance of the ventricular septum consistent with increased pressure/volume overload to the right ventricle. 3. The atrial septum appeared to be normal without evidence of defect or shunt. 4. Normal aortic root. 5. Trace pericardial effusion noted. No evidence of cardiac tamponade. 6. Mildly calcified aortic valve with normal leaflet excursion. 7. Mildly calcified mitral annulus with normal anterior mitral valve leaflet motion. Normal tricuspid valve and pulmonic valve. The proximal pulmonary artery branches were not well visualized. 8. The inferior vena cava was dilated, central venous pressure is most likely elevated. DOPPLER: It detects trace mitral regurgitation, moderate tricuspid regurgitation, and trace pulmonic regurgitation. The calculated pulmonary artery systolic pressure varied between 50 to 60 mmHg. Abnormal relaxation pattern was noted across the mitral valve leaflets, as well as the mitral valve annulus consistent with features of grade 1 left ventricular diastolic dysfunction. IMPRESSION: 1. Normal global left ventricular systolic function with moderate concentric left ventricular hypertrophy. There are some features of grade 1 left ventricular diastolic dysfunction manifested by abnormal relaxation. 2. Aortic valve sclerosis with trivial aortic stenosis, but no aortic regurgitation. 3. Mitral annular calcification with trace mitral regurgitation. 4. Moderate tricuspid regurgitation with moderate to severe pulmonary hypertension and dilated right heart chambers. 5. Trace pericardial effusion noted, no evidence of cardiac tamponade. 6. This case was discussed earlier today with the patients hospitalist. JENNIFER
[2020-07-16] MEDS ORDERED: ELIQ5TAB PO (13:32)
== END 2020-06-20 15:02 | disposition home or self-care (01) | DRG 175 ==
LOC: EDBD 10:26 → M ED 10:26 → M ED INP 16:30 → ENRESERV 16:54 → M MSPAV 18:14
PROVIDERS: ADMIT Internal Medicine; ATTEND Internal Medicine
DX: I26.99 Other pulmonary embolism without acute cor pulmonale (principal); J96.01 Acute respiratory failure with hypoxia; I50.33 Acute on chronic diastolic (congestive) heart failure; N17.9 Acute kidney failure, unspecified; I11.0 Hypertensive heart disease with heart failure; I25.118 Atherosclerotic heart disease of native coronary artery with other forms of angina pectoris; G47.33 Obstructive sleep apnea (adult) (pediatric); E66.01 Morbid (severe) obesity due to excess calories; N28.89 Other specified disorders of kidney and ureter; E78.5 Hyperlipidemia, unspecified; Z79.82 Long term (current) use of aspirin; Z79.899 Other long term (current) drug therapy; Z88.0 Allergy status to penicillin; Z95.5 Presence of coronary angioplasty implant and graft; Z87.19 Personal history of other diseases of the digestive system; Z20.822 Contact with and (suspected) exposure to COVID-19; Z87.891 Personal history of nicotine dependence; Z68.39 Body mass index [BMI] 39.0-39.9, adult

== ENCOUNTER 2020-07-18 09:45 | Outpatient (CLI) | payer MEDICARE, OTHER ==
[~2020-07-18 09:45] MED LIST changes: +ATOR1TAB21 PO; +ELIQ5TAB PO; +HYDR-3910 PO; +LOVE0.8I3 SC; +MULT-40 PO
[2020-07-23 17:00] VITALS: BP 133/78
== END 2020-07-23 16:56 ==
LOC: M LABSMTC 09:45 → M MS5PR 07-23 16:55 → M LABSMTC 07-23 16:56
PROVIDERS: ATTEND Anesthesiology
DX: Z01.812 Encounter for preprocedural laboratory examination (principal); Z20.822 Contact with and (suspected) exposure to COVID-19

== ENCOUNTER 2020-07-23 06:05 | Inpatient (IN) | payer MEDICARE, OTHER ==
[~2020-07-23] VITALS: Ht 182.9 cm; Wt 136.5 kg
[2020-07-23] MEDS ORDERED: LR 1,000 ML IV ONE (06:40)
[2020-07-23] MEDS ORDERED: ceFAZolin 2 GM/D5W 50 ML IV BAG (J0690 PER 500MG) As Ordered ONE ×2 (06:41→12:19)
[2020-07-23] MEDS ORDERED: ONDANSETRON 4MG/2ML VIAL IV PRN ×2 (07:25→14:55)
[2020-07-23] MEDS ORDERED: ceFAZolin SOD 2 GM in IV 1 EA IV ONE (07:25)
[2020-07-23] MEDS ORDERED: PERCOCET 5MG/325MG TAB PO PRN ×2 (07:25)
[2020-07-23] MEDS ORDERED: LIDOCAINE 1% MDV 20ML VIAL As Ordered ONE (07:40)
[2020-07-23] MEDS ORDERED: BUPIVACAINE HCL 0.25% 10ML VIAL As Ordered ONE (07:40)
[2020-07-23] MEDS ORDERED: ROCURONIUM BROMIDE 50 MG/5 ML VIAL As Ordered ONE ×3 (08:06→11:49)
[2020-07-23] MEDS ORDERED: propofoL 200 MG/20 ML VIAL As Ordered ONE (08:06)
[2020-07-23] MEDS ORDERED: fentaNYL 100 MCG/2 ML INJECTION (J3010) As Ordered ONE (08:06)
[2020-07-23] MEDS ORDERED: ePHEDrine SULFATE 25 MG/5 ML(5MG/ML) SYRINGE As Ordered ONE (08:06)
[2020-07-23] MEDS ORDERED: LIDOCAINE 2% 100MG/5ML SDV (FOR ANES.) As Ordered ONE (08:06)
[2020-07-23] MEDS ORDERED: ONDANSETRON 4MG/2ML VIAL As Ordered ONE (08:06)
[2020-07-23] MEDS ORDERED: MIDAZOLAM INJ 2MG/2ML VIAL (J2250 PER 1MG) As Ordered ONE (08:06)
[2020-07-23] MEDS ORDERED: HYDROmorphone HCL 2 MG/ML 1ML VIAL (J1170) As Ordered ONE (08:06)
[2020-07-23] MEDS ORDERED: dexameTHASONE 4 MG/ML 1ML VIAL (J1100 PER 1MG) As Ordered ONE (08:06)
[2020-07-23] MEDS ORDERED: ACETAMINOPHEN 1000MG 100ML IV BTL (OFIRMEV) (J0131 PER 10MG) As Ordered ONE (10:49)
[2020-07-23] MEDS ORDERED: SUGAMMADEX SODIUM 500 MG/5 ML VIAL (BRIDION) As Ordered ONE (10:51)
[2020-07-23] MEDS ORDERED: oxyCODONE 5MG TAB PO PRN (14:55)
[2020-07-23] MEDS ORDERED: LR 1,000 ML IV SCH (14:55)
[2020-07-23] MEDS: fentaNYL 100 MCG/2 ML INJECTION (J3010) IV PRN ×4 (15:05→15:27)
[2020-07-23 15:08] LABS: HEMATOCRIT 38.6 % (42.0-52.0); HEMOGLOBIN 12.5 g/dl (13.5-17.5); MEAN CORPUSCULAR HEMOGLOBIN 30.3 pg (27.0-33.0); MEAN CORPUSCULAR HGB CONC 32.4 g/dl (32.0-36.5); MEAN CORPUSCULAR VOLUME 93.5 fl (80.0-96.0); PLATELET COUNT, AUTOMATED 175 10^3/uL (150-450); RED BLOOD COUNT 4.13 10^6/uL (4.30-6.10); WHITE BLOOD COUNT 12.8 10^3/uL (4.0-10.0)
--- NOTE | 2020-07-23 15:20 | ROOPDOC ---
[facility] Report Of Operation Report of Operation DATE OF PROCEDURE: 07/23/20 PREPROCEDURE DIAGNOSES: Right Renal Neoplasm. POSTPROCEDURE DIAGNOSES: Right Renal Neoplasm. PROCEDURE: Right Robotic-assisted Laparoscopic Radical Nephrectomy (adrenal- sparing). SURGEON: Afshin Armendariz MD CODING SPECIALIST: Tina Liu NP ANESTHESIA: General OPERATIVE INDICATIONS: This is a 65 year old male who was found recently to have a 14cm enhancing right renal mass, concerning for malignancy. He was brought to the operating room today for the above procedure for treatment. DESCRIPTION OF PROCEDURE: The patient was brought to the operating room and general anesthesia was induced. Prophylactic antibiotics were infused. A Floyd catheter was inserted into the bladder under sterile conditions. The patient was then placed in the left lateral decubitus position. All pressure points were appropriately padded and an axillary roll was placed. He was secured to the table with tape. The patient was then prepped and draped in the usual sterile fashion. The initial incision was for an 8mm port in line with the 11th rib along the lateral rectus margin. A Veress needle was then utilized to achieve the pneumoperitoneum. An 8mm port was then placed in through this incision and through which the camera was inserted. There were no injuries from Veress needle placement or initial trocar placement. The remaining ports were then placed under vision. The right hand robotic port was placed along the costal margin. Another 5 mm port was placed just inferior to the xyphoid for access for a liver retractor. A 12mm robotic port was placed just inferior to the camera port, also on the lateral rectus margin. The left hand robotic port was placed between the anterior-superior iliac spine and the umbilicus. A 15mm assistant strength coach port was placed inferior and medial to the camera port. The robot was then docked. We began by lifting up the liver with a laparoscopic locking Allis clamp. Next the right colon was dissected off of Gerota's fascia. We then Kocherized the duodenum. At this point the inferior vena cava (IVC) was identified. A plane was made onto the lateral aspect of the IVC. The patient had 1 right renal vein and one right renal artery. The artery was carefully dissected and then ligated and transected with with a robotic 45mm stapler. Weck clips were also placed on the artery to further secure it. Next, a robotic 45mm stapler was utilized to ligate and transect the right renal vein. Once the hilum was taken, a plane onto the upper pole of the kidney was created and the right adrenal gland was mobilized off of the kidney. The kidney was then carefully dissected on all sides until it was only connected by the right ureter. The ureter was then ligated with Weck clips and transected in between. Once the kidney was free, it was placed in a large Endocatch bag for future retrieval. We then checked for hemostasis and it appeared excellent. Carmen hemostatic agent was then placed in the nephrectomy bed. The robot was undocked. We then used a Rex-Tj fascial closure device to place a #0 Vicryl free tie through the fascia of the 15 mm camera port site. We then extended the 12 mm port site and used it as the extraction incision. We then dissected down to the fascia. The fascia was then extended using electrocautery. The muscle was bluntly spread. The specimen was then extracted through this incision. It was handed off the table to send for pathology. We then closed the fascia of the extraction incision using a running #0 Vicryl suture. At this point, the abdomen was reinsufflated and we looked back in with the camera and there was no bleeding underneath the extraction site. No abdominal contents were caught within the closure either. We then removed all the ports under direct vision and there was no bleeding from any of the port sites. At this point, the previously placed #0 Vicryl free ties were tied down and all the incisions were thoroughly irrigated. The subcutaneous tissue of the extraction incision was then reapproximated using interrupted #3-0 Vicryl suture. We then closed the skin of each site using a running #4-0 subcuticular Monocryl stitch. Local anesthetic was then applied to each incision and Dermabond was then applied and this marked the conclusion of the procedure. The patient was then taken out of the left lateral decubitus position, awakened from anesthesia and transported to the recovery room in stable condition. ESTIMATED BLOOD LOSS: 300 mL INTRAOPERATIVE COMPLICATIONS: None SPECIMENS: Right kidney. PLAN: The patient will be admitted to the hospital postoperatively and he will be discharged home once his renal function is stable and he is tolerating a regular diet. AFSHIN ARMENDARIZ MD Jul 23, 2020 07:51
[2020-07-23 15:35] LABS: CALCIUM LEVEL 8.9 MG/DL (8.8-10.2); CREATININE FOR GFR 1.9 MG/DL (0.70-1.30); GLOMERULAR FILTRATION RATE 37.9 (>49); POTASSIUM SERUM 4.5 MEQ/L (3.5-5.1)
[2020-07-23] MEDS: ceFAZolin SOD 1 GM in D5W MINI-BAG PLUS 50 ML IV SCH (16:00)
[2020-07-23 17:00] VITALS: BP 133/78
[2020-07-23 17:30] VITALS: BP 132/66
[2020-07-23 18:30] VITALS: BP 133/67
[2020-07-23] MEDS: NS 1,000 ML IV SCH (18:46)
[2020-07-23] MEDS: RANOLAZINE 500 MG ER TAB PO SCH ×2 (18:47→21:24)
[2020-07-23] MEDS: DOCUSATE SODIUM 100MG CAPSULE PO SCH ×2 (18:47→21:25)
[2020-07-23 19:30] VITALS: BP 149/75
[2020-07-23 20:30] VITALS: BP 144/72
[2020-07-23] MEDS: HEPARIN SOD (PORCINE) 5000UNITS/ML 1ML VIAL/SYRINGE SC SCH (21:24)
[2020-07-23] MEDS: ACETAMINOPHEN TAB 650MG DOSE (2X325MG) PO PRN (21:24)
[2020-07-23] MEDS: **hydrALAZINE HCL** 25 MG TAB PO SCH (21:26)
[2020-07-23] MEDS: ATORVASTATIN 20 MG TAB PO SCH (21:26)
[2020-07-23 21:29] VITALS: BP 142/74
[2020-07-23] MEDS: MORPHINE 2 MG/ML 1ML VIAL (J2270) IV PRN (21:32)
[2020-07-24] VITALS (9 sets, daily range): BP systolic 127–166; BP diastolic 59–83
[2020-07-24] MEDS: ceFAZolin SOD 1 GM in D5W MINI-BAG PLUS 50 ML IV SCH (00:58)
[2020-07-24] MEDS: NS 1,000 ML IV SCH (03:25)
[2020-07-24] MEDS: ACETAMINOPHEN TAB 650MG DOSE (2X325MG) PO PRN (05:57)
[2020-07-24] MEDS: HEPARIN SOD (PORCINE) 5000UNITS/ML 1ML VIAL/SYRINGE SC SCH ×3 (05:58→22:16)
[2020-07-24 07:59] LABS: HEMATOCRIT 36.6 % (42.0-52.0); HEMOGLOBIN 11.5 g/dl (13.5-17.5); MEAN CORPUSCULAR HEMOGLOBIN 29.8 pg (27.0-33.0); MEAN CORPUSCULAR HGB CONC 31.4 g/dl (32.0-36.5); MEAN CORPUSCULAR VOLUME 94.8 fl (80.0-96.0); PLATELET COUNT, AUTOMATED 179 10^3/uL (150-450); RED BLOOD COUNT 3.86 10^6/uL (4.30-6.10); WHITE BLOOD COUNT 10.5 10^3/uL (4.0-10.0)
[2020-07-24 08:24] LABS: CALCIUM LEVEL 8.4 MG/DL (8.8-10.2); CREATININE FOR GFR 1.67 MG/DL (0.70-1.30); POTASSIUM SERUM 4.6 MEQ/L (3.5-5.1)
[2020-07-24] MEDS: RANOLAZINE 500 MG ER TAB PO SCH ×2 (09:18→20:41)
[2020-07-24] MEDS: DOCUSATE SODIUM 100MG CAPSULE PO SCH ×2 (09:18→20:42)
--- NOTE | 2020-07-24 10:27 | IPNPDOC ---
Subjective Review oF Systems Chief Complaint The patient is a 65-year-old male admitted with a reason for visit of Renal Mass. Events since Last Encounter No acute events o/n. Patient has good pain control. No n/v. Has not ambulated yet. No f/c/ns. Objective Physical Examination General Exam: Alert, Cooperative, No Acute Distress ABDOMEN EXAM: Soft, Tenderness (mild), Other (incisions clean/dry/intact) Skin Exam: Nl turgor and temperature Neuro Exam: Normal Speech Psych Exam: Mental status NL, Mood NL Other physical findings catheter draining yellow urine Vital Signs/I&O Vital Signs Date Time Temp Pulse Resp B/P (MAP) Pulse Ox O2 Delivery O2 Flow Rate FiO2 07/24/20 10:00 98.0 72 16 152/59 (90) 93 Nasal Cannula 07/24/20 06:00 4.0 I&O- Last 24 Hours up to 6 AM 07/24/20 06:00 Intake Total 4810 ml Output Total 1275 ml Balance 3535 ml Laboratory Data Labs 24H Laboratory Tests 2 07/23/20 14:48: Nucleated Red Blood Cells % (auto) 0.0, Anion Gap 5L, Glomerular Filtration Rate 37.9L, Calcium Level 8.9 07/24/20 07:34: Nucleated Red Blood Cells % (auto) 0.0, Anion Gap 6L, Glomerular Filtration Rate 44.0L, Calcium Level 8.4L CBC/BMP Laboratory Tests 07/23/20 14:48 07/24/20 07:34 Assessment/Plan Date Seen The patient was seen on 07/24/20. Patient Summary This is a 65 y/o M POD1 s/p R robotic radical nephrectomy (adrenal-sparing). He is doing well. His Hb is 11.5 and his Cr is 1.67. UOP has been good. His HR was bouncing from the 40s-80s earlier and therefore an EKG was obtained. It showed he was in sinus rhythm. Plan/VTE VTE Prophylaxis Ordered?: Yes VTE Exclusion Mechanical Proph: N/A:VTE Prophy Ordered VTE Exclusion Pharmacological: N/A:VTE Prophy Ordered Plan - d/c IVF - d/c Floyd - percocet prn pain - continue home meds except eliquis - ambulate - SCDs when in bed - SQH - incentive spirometry - strict I/Os - likely discharge home tomorrow AFSHIN ARMENDARIZ MD Jul 24, 2020 10:26
[2020-07-24] MEDS: MORPHINE 2 MG/ML 1ML VIAL (J2270) IV PRN (13:26)
--- NOTE | 2020-07-24 20:24 | ECGEPIP ---
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
[2020-07-24] MEDS: ATORVASTATIN 20 MG TAB PO SCH (20:42)
[2020-07-24] MEDS: **hydrALAZINE HCL** 25 MG TAB PO SCH (20:43)
[2020-07-25 01:38] VITALS: BP 152/80
[2020-07-25 06:01] VITALS: BP 160/88
[2020-07-25] MEDS: HEPARIN SOD (PORCINE) 5000UNITS/ML 1ML VIAL/SYRINGE SC SCH (06:01)
[2020-07-25 06:06] VITALS: BP 160/88
[2020-07-25] MEDS ORDERED: FUROSEMIDE 20MG/2ML VIAL (J1940) IV ONE (06:25)
[2020-07-25 06:27] LABS: HEMATOCRIT 38.1 % (42.0-52.0); HEMOGLOBIN 12.1 g/dl (13.5-17.5); MEAN CORPUSCULAR HEMOGLOBIN 30.3 pg (27.0-33.0); MEAN CORPUSCULAR HGB CONC 31.8 g/dl (32.0-36.5); MEAN CORPUSCULAR VOLUME 95.3 fl (80.0-96.0); PLATELET COUNT, AUTOMATED 149 10^3/uL (150-450); WHITE BLOOD COUNT 10.1 10^3/uL (4.0-10.0)
[2020-07-25 06:52] LABS: CALCIUM LEVEL 8.7 MG/DL (8.8-10.2); CREATININE FOR GFR 1.61 MG/DL (0.70-1.30); GLOMERULAR FILTRATION RATE 45.9 (>49); POTASSIUM SERUM 4.3 MEQ/L (3.5-5.1)
--- NOTE | 2020-07-25 08:43 | IPNPDOC ---
Subjective Review oF Systems Chief Complaint The patient is a 65-year-old male admitted with a reason for visit of Renal Mass. Events since Last Encounter No acute events o/n. Patient notes his pain is better controlled. He slept much better last night. Denies n/v. Passing flatus. No f/c/ns. Objective Physical Examination General Exam: Alert, Cooperative, No Acute Distress ABDOMEN EXAM: Soft, Tenderness (mild), Other (incisions clean/dry/intact) Skin Exam: Nl turgor and temperature Neuro Exam: Normal Speech Psych Exam: Mental status NL, Mood NL Vital Signs/I&O Vital Signs Date Time Temp Pulse Resp B/P (MAP) Pulse Ox O2 Delivery O2 Flow Rate FiO2 07/25/20 06:06 98.2 78 17 160/88 (112) 92 Nasal Cannula 1.0 I&O- Last 24 Hours up to 6 AM 07/25/20 06:00 Intake Total 2090 ml Balance 2090 ml Laboratory Data Labs 24H Laboratory Tests 2 07/25/20 06:14: Nucleated Red Blood Cells % (auto) 0.0, Anion Gap 6L, Glomerular Filtration Rate 45.9L, Calcium Level 8.7L CBC/BMP Laboratory Tests 07/25/20 06:14 Assessment/Plan Date Seen The patient was seen on 07/25/20. Patient Summary This is a 65 y/o M POD2 s/p R robotic radical nephrectomy (adrenal-sparing). He feels better today. His Hb is stable at 12.1. His Cr is stable at 1.6. His UOP has been ok, but he is still about 4L positive. Plan/VTE VTE Prophylaxis Ordered?: Yes VTE Exclusion Mechanical Proph: N/A:VTE Prophy Ordered VTE Exclusion Pharmacological: N/A:VTE Prophy Ordered Plan - 10mg lasix given this morning to help diurese - percocet or tylenol prn pain - continue home meds except eliquis - strict I/Os - SCDs in bed - SQH - incentive spirometry - wean O2 as tolerated - regular diet - likely discharge home later today AFSHIN ARMENDARIZ MD Jul 25, 2020 08:43
[2020-07-25] MEDS: RANOLAZINE 500 MG ER TAB PO SCH (08:55)
[2020-07-25] MEDS: DOCUSATE SODIUM 100MG CAPSULE PO SCH (09:33)
[2020-07-25 10:00] VITALS: BP 155/92
[2020-07-25] MEDS: ACETAMINOPHEN TAB 650MG DOSE (2X325MG) PO PRN (11:55)
[2020-07-25 14:00] VITALS: BP 135/83
[2020-07-25] MEDS ORDERED: PERCOCET PO (14:15)
[2020-07-25] MEDS ORDERED: DOK1CAP7 PO (14:15)
[2020-07-25] MEDS ORDERED: LOVE1INJ SC (14:15)
--- NOTE | 2020-07-25 15:59 | DSES ---
DISCHARGE SUMMARY DATE OF ADMISSION: 07/23/2020 DATE OF DISCHARGE: 07/25/2020 ADMISSION DIAGNOSIS: Right renal neoplasm. DISCHARGE DIAGNOSIS: Right renal cell carcinoma. ADMITTING PHYSICIAN: Simeon Mcgarry MD. DISCHARGING PHYSICIAN: Simeon Mcgarry MD. PROCEDURE(S) PERFORMED: Right robotic-assisted laparoscopic radical nephrectomy on 07/23/2020. HISTORY OF PRESENT ILLNESS: This is a 65-year-old male who was found to have an enhancing 14 cm right renal neoplasm concerning for malignancy. He underwent the above procedure and was admitted postoperatively. HOSPITAL COURSE: The patient was admitted to the hospital after undergoing a right robotic radical nephrectomy on 07/23/2020. His postoperative course was unremarkable. On postoperative day one, his lab work was notable for a stable hemoglobin of 11.5 and a serum creatinine, which had come down to 1.67 from 1.9 immediately postop. He was moderately drowsy throughout the day on postoperative day one due to difficulty sleeping the night before. He was able to start ambulating a little. His diet was advanced and he tolerated a regular diet. By postoperative day two, the patient was feeling much better as he slept better than the night of postoperative day one. His hemoglobin on postoperative day two was still stable at 12.1 and his serum creatinine had improved a little bit to 1.61. Due to mild urine output on postoperative day one, he was given a dose of 10 mg of Lasix. On the morning of postoperative day two his urine output picked up with this. His pain was controlled with Tylenol mainly by postoperative day two. He was passing some flatus. He was ambulating better on postoperative day two. He was also weaned off of his oxygen and his O2 saturation was normal on room air. By the end of postoperative day two, he was deemed ready for discharge home. He was discharged home with the plan for him to follow-up in the urology clinic in approximately two weeks for a postoperative check and to discuss the pathology results. JENNIFER
== END 2020-07-25 15:50 | disposition home or self-care (01) | DRG 658 ==
LOC: M OR 06:05 → M MS5PR 16:55
PROVIDERS: ADMIT Urology; ATTEND Urology
PROC: 8E0W4CZ Robotic Assisted Procedure of Trunk Region, Percutaneous Endoscopic Approach (ICD-10-PCS; 2020-07-23)
PROC: 0TT04ZZ Resection of Right Kidney, Percutaneous Endoscopic Approach (ICD-10-PCS; principal; 2020-07-23 07:30)
DX: C64.1 Malignant neoplasm of right kidney, except renal pelvis (principal); I25.10 Atherosclerotic heart disease of native coronary artery without angina pectoris; I10 Essential (primary) hypertension; E78.5 Hyperlipidemia, unspecified; L40.9 Psoriasis, unspecified; I25.2 Old myocardial infarction; Z79.01 Long term (current) use of anticoagulants; Z79.82 Long term (current) use of aspirin; Z79.899 Other long term (current) drug therapy; Z95.5 Presence of coronary angioplasty implant and graft; Z86.711 Personal history of pulmonary embolism

== ENCOUNTER → 2020-08-08 | Outpatient (CLI) | payer MEDICARE, OTHER ==
[~2020-08-08] MED LIST changes: +DOK1CAP7 PO; +LOVE1INJ SC; +PERCOCET PO
[2020-08-08 16:12] LABS: HEMOGLOBIN 12.5 g/dl (13.5-17.5); MEAN CORPUSCULAR HEMOGLOBIN 29.6 pg (27.0-33.0); MEAN CORPUSCULAR HGB CONC 31.3 g/dl (32.0-36.5); MEAN CORPUSCULAR VOLUME 94.8 fl (80.0-96.0); PLATELET COUNT, AUTOMATED 291 10^3/uL (150-450); RED BLOOD COUNT 4.22 10^6/uL (4.30-6.10); WHITE BLOOD COUNT 8.3 10^3/uL (4.0-10.0)
[2020-08-08 16:34] LABS: CALCIUM LEVEL 9.4 MG/DL (8.8-10.2); CREATININE FOR GFR 1.82 MG/DL (0.70-1.30); GLOMERULAR FILTRATION RATE 39.9 (>49); POTASSIUM SERUM 4.6 MEQ/L (3.5-5.1)
== END ==
LOC: M WUC 10:16
PROVIDERS: ATTEND Urology
DX: C64.1 Malignant neoplasm of right kidney, except renal pelvis (principal); Z90.5 Acquired absence of kidney

== ENCOUNTER → 2020-12-19 | Outpatient (REF) | payer MEDICARE, OTHER ==
[~2020-12-19] MED LIST changes: +DOK1CAP4 PO; -DOK1CAP7 PO; +OMEP40CA4 PO; -OMEP40CA97 PO
== END ==
LOC: M LAB REF 13:04
PROVIDERS: ATTEND Internal Medicine Nephrology
DX: N18.32 Chronic kidney disease, stage 3b (principal)

== ENCOUNTER → 2021-03-09 | Outpatient (REF) | payer MEDICARE, OTHER | LOC: M LAB REF 15:51 | PROVIDERS: ATTEND Physician Assistant | DX: L02.11 Cutaneous abscess of neck (principal) ==

== ENCOUNTER → 2021-03-12 | Outpatient (CLI) | payer MEDICARE, OTHER ==
[2021-03-12 17:22] LABS: CREATININE FOR GFR 1.97 MG/DL (0.70-1.30); GLOMERULAR FILTRATION RATE 36.4 (>49); POTASSIUM SERUM 4.7 MEQ/L (3.5-5.1)
== END ==
LOC: M PLALAB 15:22
PROVIDERS: ATTEND Urology
DX: C64.1 Malignant neoplasm of right kidney, except renal pelvis (principal); Z90.5 Acquired absence of kidney; Z12.5 Encounter for screening for malignant neoplasm of prostate
CPT/HCPCS: 36415; 80048; G0103; G0463

== ENCOUNTER → 2021-03-16 | Outpatient (CLI) | payer MEDICARE, OTHER ==
[~2021-03-16] MED LIST changes: +GASTROGRAFIN SOLUTION 30ML (Q9963) As Ordered ONE
== END ==
LOC: M RAD 13:30
PROVIDERS: ATTEND Urology
DX: C64.1 Malignant neoplasm of right kidney, except renal pelvis (principal); Z90.5 Acquired absence of kidney; N28.1 Cyst of kidney, acquired
CPT/HCPCS: 71046; 74176; Q9963

== ENCOUNTER → 2021-10-14 | Outpatient (CLI) | payer MEDICARE, OTHER ==
[~2021-10-14] MED LIST changes: -CAND32TA PO; +CAND32TA2 PO; -GASTROGRAFIN SOLUTION 30ML (Q9963) As Ordered ONE
[2021-10-14 17:30] LABS: CREATININE FOR GFR 1.66 MG/DL (0.70-1.30); GLOMERULAR FILTRATION RATE 44.2 (>49); POTASSIUM SERUM 4.1 MEQ/L (3.5-5.1)
== END ==
LOC: M PLAIMG 12:33
PROVIDERS: ATTEND Urology
DX: C64.1 Malignant neoplasm of right kidney, except renal pelvis (principal); Z90.5 Acquired absence of kidney; R97.20 Elevated prostate specific antigen [PSA]

== ENCOUNTER 2021-10-23 14:48 | Emergency (ER) | payer MEDICARE, OTHER ==
[~2021-10-23] VITALS: Ht 182.9 cm; Wt 142.9 kg
[2021-10-23] MEDS ORDERED: BOOSTRIX/ADACEL VACCINE (DIPHTH/PERTUSS/ACELL/TETANUS) 0.5ML SYR IM ONE (17:30)
[2021-10-23] MEDS ORDERED: CLEO300C2 PO (17:51)
[2021-10-23] MEDS ORDERED: BACT800T5 PO (17:51)
[2021-10-23 18:11] VITALS: BP 160/90
== END 2021-10-23 18:13 | disposition home or self-care (01) ==
LOC: M ED 14:48
DX: S71.131A Puncture wound without foreign body, right thigh, initial encounter (principal); W54.0XXA Bitten by dog, initial encounter; Y92.008 Other place in unspecified non-institutional (private) residence as the place of occurrence of the external cause; Y99.0 Civilian activity done for income or pay; I10 Essential (primary) hypertension; I50.9 Heart failure, unspecified; I25.2 Old myocardial infarction; E66.9 Obesity, unspecified; Z95.1 Presence of aortocoronary bypass graft; Z95.5 Presence of coronary angioplasty implant and graft; Z79.899 Other long term (current) drug therapy; Z79.82 Long term (current) use of aspirin; Z88.0 Allergy status to penicillin

== ENCOUNTER → 2021-12-01 | Outpatient (REF) | payer MEDICARE, OTHER ==
[~2021-12-01] MED LIST changes: +BACT800T5 PO; +CLEO300C2 PO
== END ==
LOC: M SMT 12:56
PROVIDERS: ATTEND Urology
DX: R97.20 Elevated prostate specific antigen [PSA] (principal)

== ENCOUNTER 2022-04-30 19:47 | Emergency (ER) | payer MEDICARE, OTHER ==
[~2022-04-30] VITALS: Ht 182.9 cm; Wt 136.0 kg
[~2022-04-30 19:47] MED LIST changes: +CLOP75TA99 PO; -PLAV1TAB2 PO
[2022-04-30 21:03] LABS: BASO % 0.2 % (0.0-1.0); EOS # 0.1 10^3/uL (0.0-0.5); EOS % 1.1 % (0.0-3.0); HEMATOCRIT 47.1 % (42.0-52.0); HEMOGLOBIN 15.6 g/dl (13.5-17.5); LYMPH # 0.8 10^3/uL (1.5-5.0); LYMPH % 7.8 % (24.0-44.0); MEAN CORPUSCULAR HEMOGLOBIN 30.6 pg (27.0-33.0); MEAN CORPUSCULAR HGB CONC 33.1 g/dl (32.0-36.5); MEAN CORPUSCULAR VOLUME 92.4 fl (80.0-96.0); MONO # 0.6 10^3/uL (0.0-0.8); MONO % 6.1 % (2.0-8.0); NEUTROPHILS # 8.8 10^3/uL (1.5-8.5); NEUTROPHILS % 84.4 % (36.0-66.0); PLATELET COUNT, AUTOMATED 144 10^3/uL (150-450); WHITE BLOOD COUNT 10.5 10^3/uL (4.0-10.0)
[2022-04-30 21:12] LABS: CK-MB VALUE MASS 1.6 NG/ML (<3.6)
[2022-04-30 21:15] LABS: ALBUMIN 3.9 G/DL (3.2-5.2); BILIRUBIN,DIRECT 0.2 MG/DL (<0.4); BILIRUBIN,TOTAL 0.7 MG/DL (0.3-1.2); CALCIUM LEVEL 9.1 MG/DL (8.3-10.6); CREATININE FOR GFR 1.51 MG/DL (0.70-1.30); GLOMERULAR FILTRATION RATE 49.2 (>49); POTASSIUM SERUM 4.2 MMOL/L (3.5-5.1); TOTAL PROTEIN 7.2 G/DL (5.7-8.2)
[2022-04-30 21:16] LABS: FREE T4 1.13 NG/DL (0.89-1.76)
[2022-04-30 21:17] LABS: THYROID STIMULATING HORMONE 2.884 uIU/ML (0.55-4.78)
[2022-04-30 21:19] LABS: MB/CK RELATIVE INDEX 1.72 (< OR =4)
[2022-04-30] MEDS ORDERED: ISOVUE-370 76% 100ML VIAL As Ordered ONE (21:19)
[2022-04-30 21:26] LABS: INR 1.02; PARTIAL THROMBOPLASTIN TIME 26.9 SECONDS (24.8-34.2); PROTHROMBIN TIME 13.6 SECONDS (12.5-14.5)
[2022-04-30 22:07] LABS: CK-MB VALUE MASS 1.1 NG/ML (<3.6)
[2022-04-30 22:08] LABS: D-DIMER QUANT > 4000 ng/ml (<500)
[2022-04-30] MEDS ORDERED: HEPARIN DRIP 25,000 UNITS in IV 1 EA IV SCH (22:20)
[2022-04-30 22:23] LABS: MB/CK RELATIVE INDEX 1.15 (< OR =4)
[2022-04-30] MEDS ORDERED: IPRATROPIUM 0.5MG/ALBUTEROL 2.5MG INH SOL UD 3ML (DUONEB) NEB ONE (22:50)
[2022-04-30 23:17] LABS: ABG BASE EXCESS 2.7 (-2.0-2.0); ABG HCO3 26.5 MEQ/L (22.0-26.0); ABG O2 SATURATION 89.5 % (95.0-99.0); ABG PARTIAL PRESSURE CO2 38.1 mmHg (35.0-45.0); ABG PARTIAL PRESSURE O2 56.4 mmHg (75.0-100.0); ABG STANDARD HCO3 26.7 MEQ/L (22.0-26.0); ABG TOTAL CO2 27.7 MEQ/L (23.0-31.0)
[2022-05-01 00:45] VITALS: BP 179/99
== END 2022-05-01 00:54 | disposition short-term general hospital (02) ==
LOC: M ED 19:47
DX: I26.99 Other pulmonary embolism without acute cor pulmonale (principal); R09.02 Hypoxemia; R91.8 Other nonspecific abnormal finding of lung field; N28.1 Cyst of kidney, acquired; I25.2 Old myocardial infarction; I10 Essential (primary) hypertension; E78.5 Hyperlipidemia, unspecified; Z86.718 Personal history of other venous thrombosis and embolism; Z95.5 Presence of coronary angioplasty implant and graft; Z98.61 Coronary angioplasty status; Z82.49 Family history of ischemic heart disease and other diseases of the circulatory system; Z79.899 Other long term (current) drug therapy; Z88.0 Allergy status to penicillin
CPT/HCPCS: 36600; 71275; 80048; 80076; 82550; 82553; 82803; 83690; 84439; 84443; 84484; 85025; 85379; 85610; 85730; 87486; 87581; 87633; 87798; 93005; 93041; 94640; 94760; 96374; 99285; J1644; Q9967

== ENCOUNTER → 2022-09-13 | Outpatient (CLI) | payer MEDICARE, OTHER ==
[~2022-09-13] MED LIST changes: +ISOVUE-370 76% 100ML VIAL As Ordered ONE
== END ==
LOC: M RAD 11:20
PROVIDERS: ATTEND Urology
DX: C64.1 Malignant neoplasm of right kidney, except renal pelvis (principal); Z90.5 Acquired absence of kidney
CPT/HCPCS: 71046; 74170; Q9967

== ENCOUNTER → 2023-10-12 | Outpatient (REF) | payer MEDICARE, OTHER ==
[~2023-10-12] MED LIST changes: -HYDR-3910 PO; +HYDR25TA87 PO; -ISOVUE-370 76% 100ML VIAL As Ordered ONE
[2023-10-12 18:55] LABS: CALCIUM LEVEL 9.4 MG/DL (8.3-10.6); CREATININE FOR GFR 1.62 MG/DL (0.70-1.30); GLOMERULAR FILTRATION RATE 45.2 (>49); POTASSIUM SERUM 4.7 MMOL/L (3.5-5.1)
[2023-10-17 12:37] LABS: PSA TOTAL 3.6 ng/mL (< OR = 4.0)
== END ==
LOC: M LABWUC 17:07
PROVIDERS: ATTEND Urology
DX: R97.20 Elevated prostate specific antigen [PSA] (principal); Z90.5 Acquired absence of kidney; C64.1 Malignant neoplasm of right kidney, except renal pelvis

== ENCOUNTER → 2023-10-17 | Outpatient (CLI) | payer MEDICARE, OTHER ==
[~2023-10-17] MED LIST changes: +ISOVUE-370 76% 100ML VIAL As Ordered ONE
== END ==
LOC: M RAD 08:53
PROVIDERS: ATTEND Urology
DX: C64.1 Malignant neoplasm of right kidney, except renal pelvis (principal); Z90.5 Acquired absence of kidney
CPT/HCPCS: 74170; Q9967

== ENCOUNTER 2023-10-22 05:37 | Emergency (ER) | payer MEDICARE, OTHER ==
[~2023-10-22] VITALS: Ht 182.9 cm; Wt 131.4 kg
[~2023-10-22 05:37] MED LIST changes: -ISOVUE-370 76% 100ML VIAL As Ordered ONE
[2023-10-22 06:09] LABS: BASO % 0.5 % (0.0-1.0); EOS # 0.3 10^3/uL (0.0-0.5); HEMATOCRIT 40.6 % (42.0-52.0); HEMOGLOBIN 13.7 g/dl (13.5-17.5); LYMPH % 12.4 % (24.0-44.0); MEAN CORPUSCULAR HGB CONC 33.7 g/dl (32.0-36.5); MEAN CORPUSCULAR VOLUME 94.9 fl (80.0-96.0); MONO # 0.6 10^3/uL (0.0-0.8); MONO % 7.3 % (2.0-8.0); NEUTROPHILS # 6.2 10^3/uL (1.5-8.5); NEUTROPHILS % 75.6 % (36.0-66.0); PLATELET COUNT, AUTOMATED 137 10^3/uL (150-450); RED BLOOD COUNT 4.28 10^6/uL (4.30-6.10); WHITE BLOOD COUNT 8.3 10^3/uL (4.0-10.0)
[2023-10-22 06:29] LABS: CK-MB VALUE MASS < 1.0 NG/ML (<3.6)
[2023-10-22 06:33] LABS: BLOOD UREA NITROGEN 21 MG/DL (9-23); CALCIUM LEVEL 8.3 MG/DL (8.3-10.6); CARBON DIOXIDE LEVEL 29 MMOL/L (20-31); CHLORIDE LEVEL 110 MMOL/L (98-107); CPK CREATINE PHOSPHOKINASE 102 U/L (46-171); CREATININE FOR GFR 1.55 MG/DL (0.70-1.30); GLOMERULAR FILTRATION RATE 47.6 (>49); GLUCOSE, FASTING 136 MG/DL (74-106); MB/CK RELATIVE INDEX 0.98 (< OR =4); POTASSIUM SERUM 3.8 MMOL/L (3.5-5.1); SODIUM LEVEL 143 MMOL/L (136-145)
[2023-10-22 07:34] LABS: CK-MB VALUE MASS < 1.0 NG/ML (<3.6)
[2023-10-22 07:37] LABS: CPK CREATINE PHOSPHOKINASE 95 U/L (46-171); MB/CK RELATIVE INDEX 1.05 (< OR =4)
[2023-10-22] MEDS ORDERED: RANO500T2 PO (08:06)
[2023-10-22] MEDS ORDERED: LISI10TA22 PO (08:16)
[2023-10-22] MEDS ORDERED: ELIQ5TAB PO (08:27)
[2023-10-22] MEDS ORDERED: HOME MED LIST COMPLETE! XX SCH (08:30)
[2023-10-22 09:10] VITALS: BP 161/72
[2023-10-22] MEDS: ATORVASTATIN 20 MG TAB PO SCH (09:11)
[2023-10-22 10:25] VITALS: BP 143/65; TEMP 96.9; O2SAT 97
[2023-10-22] MEDS: RANOLAZINE 500MG ER TAB PO SCH (10:27)
== END 2023-10-22 10:40 | disposition home or self-care (01) ==
LOC: M ED 05:37 → EDBD 05:37 → M ED 10:40
DX: R07.9 Chest pain, unspecified (principal); I45.10 Unspecified right bundle-branch block; I25.2 Old myocardial infarction; I10 Essential (primary) hypertension; E78.5 Hyperlipidemia, unspecified; F17.210 Nicotine dependence, cigarettes, uncomplicated; Z88.0 Allergy status to penicillin; Z79.899 Other long term (current) drug therapy; Z79.810 Long term (current) use of selective estrogen receptor modulators (SERMs)

== ENCOUNTER → 2024-08-10 | Outpatient (CLI) | payer MEDICARE, OTHER ==
[~2024-08-10] MED LIST changes: +LISI10TA22 PO; +RANO500T2 PO
== END ==
LOC: M RAD 13:24
PROVIDERS: ATTEND Urology
DX: Z53.9 Procedure and treatment not carried out, unspecified reason (principal)

== ENCOUNTER → 2024-10-22 | Outpatient (CLI) | payer MEDICARE, OTHER ==
[~2024-10-22] MED LIST changes: +ISOVUE-370 76% 100 ML VIAL As Ordered ONE
== END ==
LOC: M RAD 16:44
PROVIDERS: ATTEND Urology
DX: C64.1 Malignant neoplasm of right kidney, except renal pelvis (principal); Z90.5 Acquired absence of kidney; N28.1 Cyst of kidney, acquired
CPT/HCPCS: 74170; Q9967

== ENCOUNTER → 2024-12-13 | Outpatient (CLI) | payer MEDICARE, OTHER ==
[~2024-12-13] MED LIST changes: +HEPARIN 1,000 UNITS/ML 10 ML VIAL (FOR RADIOLOGY & DIALYSIS ONLY) IV PRN; -ISOVUE-370 76% 100 ML VIAL As Ordered ONE
[2024-12-13 13:25] VITALS: TEMP 96.7
[2024-12-13] MEDS: NS (Normal Saline) 0.9% 1,000 ML IV SCH ×2 (14:07→14:40)
[2024-12-13] MEDS: MIDAZOLAM INJ 2 MG/2 ML VIAL IV PRN (14:10)
[2024-12-13] MEDS: ISOVUE-300 61% 100 ML VIAL IV SCH (14:50)
[2024-12-13] MEDS: LIDOCAINE 1% MDV 20 ML VIAL SC SCH (14:51)
[2024-12-13 15:30] VITALS: BP 154/62; O2SAT 93
== END ==
LOC: M IRPRO 13:06
PROVIDERS: ATTEND Internal Medicine Cardiovascular Disease
DX: I82.502 Chronic embolism and thrombosis of unspecified deep veins of left lower extremity (principal)
CPT/HCPCS: 37191; 99152; 99153; C1769; C1887; J2250; J3010; Q9967

== ENCOUNTER → 2025-01-16 | Outpatient (CLI) | payer MEDICARE, OTHER ==
[~2025-01-16] MED LIST changes: -HEPARIN 1,000 UNITS/ML 10 ML VIAL (FOR RADIOLOGY & DIALYSIS ONLY) IV PRN
== END ==
LOC: M SLEEP 20:00
PROVIDERS: ATTEND Physician Assistant
DX: G47.33 Obstructive sleep apnea (adult) (pediatric) (principal)

== ENCOUNTER 2025-03-20 11:02 | Inpatient (IN) | payer MEDICARE, OTHER ==
[~2025-03-20] VITALS: Ht 182.9 cm; Wt 150.7 kg
[2025-03-20] MEDS: NS 500 ML IV ONE (15:51)
[2025-03-20] MEDS: ONDANSETRON 4MG/2ML VIAL IV ONE (15:54)
[2025-03-20] MEDS: MORPHINE 4 MG/ML 1 ML VIAL IV ONE (15:57)
[2025-03-20 16:03] LABS: BASO # 0.0 10^3/uL (0.0-0.2); BASO % 0.3 % (0.0-1.0); EOS # 0.1 10^3/uL (0.0-0.5); EOS % 0.3 % (0.0-3.0); LYMPH # 0.5 10^3/uL (1.5-5.0); LYMPH % 3.0 % (24.0-44.0); MONO # 0.9 10^3/uL (0.0-0.8); MONO % 6.0 % (2.0-8.0); NEUTROPHILS # 13.9 10^3/uL (1.5-8.5); NEUTROPHILS % 89.8 % (36.0-66.0); PLATELET COUNT, AUTOMATED 148 10^3/uL (150-450)
[2025-03-20 16:27] LABS: CALCIUM LEVEL 9.0 MG/DL (8.3-10.6); CARBON DIOXIDE LEVEL 28.0 MMOL/L (20-31); CHLORIDE LEVEL 103.0 MMOL/L (98-107); CREATININE FOR GFR 1.27 MG/DL (0.70-1.30); GLOMERULAR FILTRATION RATE 60.8 (>42); POTASSIUM SERUM 3.9 MMOL/L (3.5-5.1); SODIUM LEVEL 140.0 MMOL/L (136-145)
[2025-03-20 16:29] LABS: INR 1.45
[2025-03-20] MEDS: ACETAMINOPHEN *IV* 1,000 MG in IV 1 EA IV ONE (16:46)
[2025-03-20] MEDS ORDERED: IPRATROPIUM 0.5 MG/ALBUTEROL 2.5 MG INH SOL UD 3 ML As Ordered ONE (18:20)
[2025-03-20] MEDS ORDERED: DOXYCYCLINE HYCLATE 100 MG in DEXTROSE 5% (D5W) MINI-BAG PLU 100 ML IV SCH (19:30)
[2025-03-20] MEDS ORDERED: MAALOX 30 ML SUSP *UDC PO PRN (19:30)
[2025-03-20] MEDS ORDERED: MORPHINE 2 MG/ML 1 ML VIAL IV PRN (19:45)
[2025-03-20] MEDS: DOXYCYCLINE HYCLATE 100 MG TABLET PO SCH (21:03)
[2025-03-20] MEDS: MORPHINE 2 MG/ML 1 ML VIAL IV PRN (21:04)
[2025-03-20] MEDS ORDERED: PANT40TA29 PO (21:11)
[2025-03-20] MEDS ORDERED: HOME MED LIST COMPLETE! XX SCH (21:15)
[2025-03-20] MEDS: RANOLAZINE 500MG ER TAB PO SCH (22:26)
[2025-03-20] MEDS: APIXABAN 5 MG TAB PO SCH (22:26)
[2025-03-20 22:35] VITALS: BP 165/75; TEMP 98.3; O2SAT 95
[2025-03-21] VITALS (8 sets, daily range): BP systolic 116–163; BP diastolic 60–67; TEMP 98.8–102.1; O2SAT 93–96
[2025-03-21] MEDS: NS (Normal Saline) 0.9% 1,000 ML in IV 1 EA IV ONE (04:22)
[2025-03-21] MEDS: ACETAMINOPHEN *IV* 500 MG in IV 1 EA IV ONE (04:22)
[2025-03-21 05:55] LABS: PLATELET COUNT, AUTOMATED 138 10^3/uL (150-450)
[2025-03-21 07:11] LABS: CALCIUM LEVEL 7.8 MG/DL (8.3-10.6); CARBON DIOXIDE LEVEL 28.0 MMOL/L (20-31); CHLORIDE LEVEL 107.0 MMOL/L (98-107); CREATININE FOR GFR 1.26 MG/DL (0.70-1.30); GLOMERULAR FILTRATION RATE 61.4 (>42); MAGNESIUM LEVEL 2.1 MG/DL (1.8-2.4); POTASSIUM SERUM 3.9 MMOL/L (3.5-5.1); SODIUM LEVEL 142.0 MMOL/L (136-145)
[2025-03-21] MEDS: ATORVASTATIN 20 MG TAB PO SCH (08:42)
[2025-03-21] MEDS: amLODIPine 10 MG TAB PO SCH (08:42)
[2025-03-21] MEDS: PANTOPRAZOLE 40MG TAB PO SCH (08:42)
[2025-03-21] MEDS: cefTRIAXone SOD 1 GM in DEXTROSE 5% (D5W) ADV/MINI-BAG 50 ML IV SCH (10:07)
[2025-03-21] MEDS: ACETAMINOPHEN *IV* 1,000 MG in IV 1 EA IV ONE (17:40)
[2025-03-21] MEDS: LR 500 ML in IV 1 EA IV ONE (17:55)
[2025-03-21] MEDS: cefTRIAXone SOD 1 GM in DEXTROSE 5% (D5W) ADV/MINI-BAG 50 ML IV ONE (18:22)
[2025-03-21] MEDS: LR 1,000 ML IV SCH (18:57)
[2025-03-22] VITALS (7 sets, daily range): BP systolic 160–171; BP diastolic 75–85; TEMP 99.1–100.6; O2SAT 87–92
[2025-03-22] MEDS: traMADol 50 MG TAB PO PRN (00:44)
[2025-03-22 06:31] LABS: BASO # 0.0 10^3/uL (0.0-0.2); BASO % 0.1 % (0.0-1.0); EOS # 0.1 10^3/uL (0.0-0.5); EOS % 0.8 % (0.0-3.0); LYMPH # 0.6 10^3/uL (1.5-5.0); LYMPH % 4.9 % (24.0-44.0); MONO # 0.7 10^3/uL (0.0-0.8); MONO % 5.9 % (2.0-8.0); NEUTROPHILS # 10.0 10^3/uL (1.5-8.5); NEUTROPHILS % 87.9 % (36.0-66.0); PLATELET COUNT, AUTOMATED 144 10^3/uL (150-450)
[2025-03-22 07:03] LABS: CALCIUM LEVEL 8.0 MG/DL (8.3-10.6); CARBON DIOXIDE LEVEL 29.0 MMOL/L (20-31); CHLORIDE LEVEL 105.0 MMOL/L (98-107); CREATININE FOR GFR 1.41 MG/DL (0.70-1.30); GLOMERULAR FILTRATION RATE 53.6 (>42); POTASSIUM SERUM 4.3 MMOL/L (3.5-5.1); SODIUM LEVEL 141.0 MMOL/L (136-145)
[2025-03-22] MEDS: ONDANSETRON 4MG/2ML VIAL IV PRN (09:25)
[2025-03-22] MEDS: cefTRIAXone SOD 2 GM in DEXTROSE 5% (D5W) ADV/MINI-BAG 50 ML IV SCH (09:25)
[2025-03-22] MEDS: LR 500 ML IV ONE (11:23)
[2025-03-22 14:20] LABS: CALCIUM LEVEL 7.9 MG/DL (8.3-10.6); CARBON DIOXIDE LEVEL 30.0 MMOL/L (20-31); CHLORIDE LEVEL 106.0 MMOL/L (98-107); CREATININE FOR GFR 1.26 MG/DL (0.70-1.30); GLOMERULAR FILTRATION RATE 61.4 (>42); POTASSIUM SERUM 4.6 MMOL/L (3.5-5.1); SODIUM LEVEL 141.0 MMOL/L (136-145)
[2025-03-23] VITALS (13 sets, daily range): BP systolic 138–173; BP diastolic 63–82; TEMP 97.1–101.6; O2SAT 84–100
[2025-03-23 03:53] LABS: VENOUS BASE EXCESS 3.5 (-2.0-2.0); VENOUS HCO3 33.0 MMOL/L (23.0-27.0); VENOUS O2 SATURATION 86.3 % (60.0-80.0); VENOUS PARTIAL PRESSURE CO2 78.0 mmHg (38.0-50.0); VENOUS PARTIAL PRESSURE O2 52.9 mmHg (30.0-50.0); VENOUS PH 7.244 UNITS (7.330-7.430); VENOUS STANDARD HCO3 27.3 MMOL/L; VENOUS TOTAL CO2 35.4 MMOL/L (24.0-28.0)
[2025-03-23 04:01] LABS: PLATELET COUNT, AUTOMATED 161 10^3/uL (150-450)
[2025-03-23 04:22] LABS: CALCIUM LEVEL 8.0 MG/DL (8.3-10.6); CARBON DIOXIDE LEVEL 33.0 MMOL/L (20-31); CHLORIDE LEVEL 102.0 MMOL/L (98-107); CREATININE FOR GFR 1.26 MG/DL (0.70-1.30); GLOMERULAR FILTRATION RATE 61.4 (>42); POTASSIUM SERUM 4.5 MMOL/L (3.5-5.1); SODIUM LEVEL 140.0 MMOL/L (136-145)
[2025-03-23 06:18] LABS: BASO # 0.0 10^3/uL (0.0-0.2); BASO % 0.3 % (0.0-1.0); EOS # 0.1 10^3/uL (0.0-0.5); EOS % 0.6 % (0.0-3.0); LYMPH # 0.5 10^3/uL (1.5-5.0); LYMPH % 4.5 % (24.0-44.0); MONO # 0.8 10^3/uL (0.0-0.8); MONO % 7.6 % (2.0-8.0); NEUTROPHILS # 8.6 10^3/uL (1.5-8.5); NEUTROPHILS % 86.4 % (36.0-66.0); PLATELET COUNT, AUTOMATED 160 10^3/uL (150-450)
[2025-03-23 06:49] LABS: CALCIUM LEVEL 8.0 MG/DL (8.3-10.6); CARBON DIOXIDE LEVEL 33.0 MMOL/L (20-31); CHLORIDE LEVEL 102.0 MMOL/L (98-107); CREATININE FOR GFR 1.16 MG/DL (0.70-1.30); GLOMERULAR FILTRATION RATE 67.8 (>42); POTASSIUM SERUM 4.4 MMOL/L (3.5-5.1); SODIUM LEVEL 140.0 MMOL/L (136-145)
[2025-03-23 07:01] LABS: C REACTIVE PROTEIN QUANTITATIV 22.67 MG/DL (<1.0)
[2025-03-23 08:18] LABS: ABG BASE EXCESS 1.6 (-2.0-2.0); ABG HCO3 30.1 MMOL/L (22.0-26.0); ABG O2 SATURATION 98.7 % (95.0-99.0); ABG PARTIAL PRESSURE O2 148.6 mmHg (75.0-100.0); ABG STANDARD HCO3 25.9 MMOL/L. (22.0-26.0); ABG TOTAL CO2 32.1 MMOL/L (23.0-31.0); ABG pH (ARTERIAL) 7.269 UNITS (7.350-7.450)
[2025-03-23] MEDS ORDERED: ISOVUE-370 76% 100 ML VIAL As Ordered ONE (08:19)
[2025-03-23 08:22] LABS: ABG PARTIAL PRESSURE CO2 67.1 mmHg (35.0-45.0)
[2025-03-23] MEDS: ACETAMINOPHEN 325 MG TAB PO PRN (08:24)
[2025-03-23 14:27] LABS: ABG BASE EXCESS 4.6 (-2.0-2.0); ABG HCO3 31.8 MMOL/L (22.0-26.0); ABG O2 SATURATION 93.1 % (95.0-99.0); ABG PARTIAL PRESSURE O2 66.1 mmHg (75.0-100.0); ABG STANDARD HCO3 28.5 MMOL/L. (22.0-26.0); ABG TOTAL CO2 33.7 MMOL/L (23.0-31.0); ABG pH (ARTERIAL) 7.338 UNITS (7.350-7.450)
[2025-03-23 14:30] LABS: ABG PARTIAL PRESSURE CO2 60.6 mmHg (35.0-45.0)
[2025-03-23] MEDS: VANCOMYCIN HCL 2,000 MG, VIAL MATE ADAPTER 1 EACH in NS 500 ML IV ONE (16:08)
[2025-03-23] MEDS: LR 1,000 ML IV SCH (18:37)
[2025-03-23 19:15] LABS: ABG BASE EXCESS 2.4 (-2.0-2.0); ABG HCO3 28.4 MMOL/L (22.0-26.0); ABG O2 SATURATION 92.5 % (95.0-99.0); ABG PARTIAL PRESSURE CO2 50.0 mmHg (35.0-45.0); ABG PARTIAL PRESSURE O2 62.6 mmHg (75.0-100.0); ABG STANDARD HCO3 26.5 MMOL/L. (22.0-26.0); ABG TOTAL CO2 29.9 MMOL/L (23.0-31.0); ABG pH (ARTERIAL) 7.372 UNITS (7.350-7.450)
[2025-03-24 04:12] VITALS: BP 164/70; TEMP 98.2; O2SAT 98
[2025-03-24 06:34] LABS: BASO # 0.0 10^3/uL (0.0-0.2); BASO % 0.4 % (0.0-1.0); EOS # 0.3 10^3/uL (0.0-0.5); EOS % 3.6 % (0.0-3.0); LYMPH # 0.6 10^3/uL (1.5-5.0); LYMPH % 6.6 % (24.0-44.0); MONO # 0.6 10^3/uL (0.0-0.8); MONO % 7.3 % (2.0-8.0); NEUTROPHILS # 6.8 10^3/uL (1.5-8.5); NEUTROPHILS % 81.6 % (36.0-66.0); PLATELET COUNT, AUTOMATED 169 10^3/uL (150-450)
[2025-03-24 06:52] LABS: CALCIUM LEVEL 8.2 MG/DL (8.3-10.6); CARBON DIOXIDE LEVEL 34.0 MMOL/L (20-31); CHLORIDE LEVEL 101.0 MMOL/L (98-107); CREATININE FOR GFR 1.12 MG/DL (0.70-1.30); GLOMERULAR FILTRATION RATE 70.7 (>42); POTASSIUM SERUM 4.2 MMOL/L (3.5-5.1); SODIUM LEVEL 140.0 MMOL/L (136-145)
[2025-03-24 07:26] VITALS: BP 148/80; TEMP 98.3; O2SAT 96
[2025-03-24] MEDS: VANCOMYCIN HCL 1,500 MG, VIAL MATE ADAPTER 1 EACH in NS 500 ML IV SCH (08:20)
[2025-03-24] MEDS: SENNA 8.6 MG TAB PO SCH (08:20)
[2025-03-24 11:39] VITALS: BP 155/66; TEMP 98.6; O2SAT 94
[2025-03-24] MEDS: LACTULOSE 20 GM/30 ML SYRUP UDC PO PRN (15:41)
[2025-03-24 16:00] VITALS: BP 160/72; TEMP 98.4; O2SAT 99
[2025-03-24 20:19] VITALS: BP 168/82; TEMP 98.3; O2SAT 95
[2025-03-24] MEDS: MIRALAX *UNIT DOSE* 17 GM PACKET PO PRN (20:38)
[2025-03-25] VITALS (7 sets, daily range): BP systolic 148–162; BP diastolic 62–80; TEMP 97.3–98.8; O2SAT 90–96
[2025-03-25 05:53] LABS: BASO # 0.0 10^3/uL (0.0-0.2); BASO % 0.5 % (0.0-1.0); EOS # 0.3 10^3/uL (0.0-0.5); EOS % 3.9 % (0.0-3.0); LYMPH # 0.6 10^3/uL (1.5-5.0); LYMPH % 8.1 % (24.0-44.0); MONO # 0.6 10^3/uL (0.0-0.8); MONO % 7.9 % (2.0-8.0); NEUTROPHILS # 6.3 10^3/uL (1.5-8.5); NEUTROPHILS % 79.0 % (36.0-66.0); PLATELET COUNT, AUTOMATED 163 10^3/uL (150-450)
[2025-03-25 06:16] LABS: CALCIUM LEVEL 8.4 MG/DL (8.3-10.6); CARBON DIOXIDE LEVEL 33.0 MMOL/L (20-31); CHLORIDE LEVEL 102.0 MMOL/L (98-107); CREATININE FOR GFR 1.06 MG/DL (0.70-1.30); GLOMERULAR FILTRATION RATE 75.5 (>42); POTASSIUM SERUM 3.8 MMOL/L (3.5-5.1); SODIUM LEVEL 142.0 MMOL/L (136-145)
[2025-03-25 06:30] LABS: C REACTIVE PROTEIN QUANTITATIV 16.05 MG/DL (<1.0)
[2025-03-25] MEDS: VANCOMYCIN HCL 1,000 MG, VIAL MATE ADAPTER 1 EACH in NS 250 ML IV SCH (06:55)
[2025-03-25] MEDS ORDERED: PILL CUTTER 1 EACH XX ONE (08:39)
[2025-03-25] MEDS: ACETAMINOPHEN *IV* 1,000 MG in IV 1 EA IV SCH (14:00)
[2025-03-25] MEDS: MOM 30 ML SUSPENSION UDC PO PRN (16:09)
[2025-03-25] MEDS: LACTULOSE 20 GM/30 ML SYRUP UDC PO ONE (18:47)
[2025-03-25] MEDS: BISACODYL 10 MG SUPP PR ONE (18:47)
[2025-03-25] MEDS: TAMSULOSIN 0.4 MG CAP PO SCH (20:20)
[2025-03-25] MEDS: FLEET ENEMA PR ONE (20:21)
[2025-03-26] VITALS (23 sets, daily range): BP systolic 115–178; BP diastolic 60–88; TEMP 97–98.8; O2SAT 85–98
[2025-03-26 05:27] LABS: BASO # 0.0 10^3/uL (0.0-0.2); BASO % 0.4 % (0.0-1.0); EOS # 0.3 10^3/uL (0.0-0.5); EOS % 2.7 % (0.0-3.0); LYMPH # 0.6 10^3/uL (1.5-5.0); LYMPH % 5.8 % (24.0-44.0); MONO # 0.7 10^3/uL (0.0-0.8); MONO % 6.9 % (2.0-8.0); NEUTROPHILS # 8.1 10^3/uL (1.5-8.5); NEUTROPHILS % 83.5 % (36.0-66.0); PLATELET COUNT, AUTOMATED 184 10^3/uL (150-450)
[2025-03-26] MEDS: **hydrALAZINE** 10 MG TAB PO SCH (17:38)
[2025-03-27] VITALS (12 sets, daily range): BP systolic 140–151; BP diastolic 62–80; TEMP 97.6–97.8; O2SAT 92–96
[2025-03-27] MEDS ORDERED: HYDR-161 PO (11:08)
[2025-03-27] MEDS ORDERED: TAMS1CAP17 PO ×2 (11:08→12:15)
[2025-03-27] MEDS ORDERED: CEPH500C PO (11:08)
[2025-03-27] MEDS ORDERED: HYDR5TAB PO (12:15)
== END 2025-03-27 13:45 | disposition home health service (06) | DRG 871 ==
LOC: M ED 11:42 → M ED INP 19:27 → M MSPAV 22:32 → M PCU 03-23 09:31
PROVIDERS: ADMIT Student in an Organized Health Care Education/Training Program; ATTEND Student in an Organized Health Care Education/Training Program
PROC: 0J9N3ZZ Drainage of Right Lower Leg Subcutaneous Tissue and Fascia, Percutaneous Approach (ICD-10-PCS; principal; 2025-03-23)
DX: A41.9 Sepsis, unspecified organism (principal); J96.22 Acute and chronic respiratory failure with hypercapnia; L03.115 Cellulitis of right lower limb; L02.411 Cutaneous abscess of right axilla; I11.0 Hypertensive heart disease with heart failure; J44.9 Chronic obstructive pulmonary disease, unspecified; E78.5 Hyperlipidemia, unspecified; I50.9 Heart failure, unspecified; I25.10 Atherosclerotic heart disease of native coronary artery without angina pectoris; Z86.718 Personal history of other venous thrombosis and embolism; Z85.528 Personal history of other malignant neoplasm of kidney; Z90.5 Acquired absence of kidney; Z79.01 Long term (current) use of anticoagulants; Z79.899 Other long term (current) drug therapy; Z88.0 Allergy status to penicillin; G47.33 Obstructive sleep apnea (adult) (pediatric); R33.9 Retention of urine, unspecified